=== PATIENT | female | born 1970 | race Caucasian/White ===

== ENCOUNTER 2019-02-05 08:51 | Inpatient (IN) | payer BC ==
[~2019-02-05] VITALS: Ht 160 cm; Wt 132.0 kg
[~2019-02-05 08:51] MED LIST: MULT473L
[2019-02-05 17:30] VITALS: BP 138/74
[2019-02-05] MEDS ORDERED: MORPHINE SULFATE 30MG TABLET SR PO SCH (18:15)
[2019-02-05] MEDS ORDERED: MORPHINE SULFATE 2 MG/ML CPJ (NOT FOR IM USE) IV PRN (18:30)
[2019-02-05] MEDS ORDERED: VANCOMYCIN 1500MG in DEXTROSE 5% WATER 250ML IV NR (19:00)
[2019-02-05] MEDS: FUROSEMIDE 20MG TABLET PO SCH (19:01)
[2019-02-05 19:52] LABS: BASOPHILS % 1.3 % (0.0-2.0); EOSINOPHILS % 1.7 % (0.0-5.0); LYMPHOCYTES % 26.2 % (20.0-50.0); MEAN CORPUSCULAR HEMOGLOBIN 32.3 pg (28.0-32.0); MEAN CORPUSCULAR VOLUME 94.4 fL (81.0-99.0); MEAN PLATELET VOLUME 9.1 fl (7.4-10.4); MONOCYTES % 6.3 % (2.0-8.0); NEUTROPHILS % 64.5 % (40.0-76.0); PLATELET 177 x1000/uL (130-400); RED BLOOD CELL COUNT 4.34 mill/uL (4.2-5.4); RED CELL DISTRIBUTION WIDTH 14.6 % (11.6-14.6)
[2019-02-05 19:59] LABS: CHLORIDE 101 mEq/L (98-107)
[2019-02-05 20:00] VITALS: BP 147/75
[2019-02-05] MEDS: MORPHINE SULFATE 4 MG/ML CPJ (NOT FOR IM USE) IV PRN (20:34)
[2019-02-05] MEDS: CLONIDINE 0.2MG TABLET PO SCH (20:34)
[2019-02-05] MEDS ORDERED: CLON0.1T14 PO (23:03)
[2019-02-05] MEDS ORDERED: MORP30TA66 PO (23:03)
[2019-02-05] MEDS ORDERED: ENOXAPARIN 40MG/0.4ML SYR SUBCUT SCH (23:15)
[2019-02-05] MEDS ORDERED: LORAZEPAM 2MG/ML CPJ IV PRN (23:15)
[2019-02-05] MEDS ORDERED: ONDANSETRON HCL 4MG/2ML INJ IV PRN (23:15)
[2019-02-05] MEDS ORDERED: CLONIDINE 0.1MG TABLET PO PRN (23:15)
[2019-02-05] MEDS ORDERED: HYDROCODONE/ACETAMINOPHEN 5/325MG TABLET PO PRN (23:15)
[2019-02-06] VITALS: BP 116/60
[2019-02-06] MEDS: MORPHINE SULFATE 4 MG/ML CPJ (NOT FOR IM USE) IV PRN ×4 (01:44→21:21)
[2019-02-06 04:00] VITALS: BP 119/50
[2019-02-06] MEDS: VANCOMYCIN 750 MG PREMIX 150 ML IV SCH ×3 (04:09→21:20)
[2019-02-06] MEDS: PANTOPRAZOLE 40MG DR TABLET PO SCH (06:37)
[2019-02-06 07:43] LABS: BASOPHILS % 0.9 % (0.0-2.0); EOSINOPHILS % 1.8 % (0.0-5.0); HEMATOCRIT. 40.4 % (36.0-48.0); HEMOGLOBIN. 13.7 g/dL (12.0-16.0); LYMPHOCYTES % 21.2 % (20.0-50.0); MEAN CORPUSCULAR HEMOGLOBIN 32.1 pg (28.0-32.0); MEAN CORPUSCULAR VOLUME 94.4 fL (81.0-99.0); MEAN PLATELET VOLUME 9.4 fl (7.4-10.4); NEUTROPHILS % 69.1 % (40.0-76.0); PLATELET 164 x1000/uL (130-400); RED BLOOD CELL COUNT 4.28 mill/uL (4.2-5.4); RED CELL DISTRIBUTION WIDTH 14.7 % (11.6-14.6)
[2019-02-06 07:59] LABS: CHLORIDE 99 mEq/L (98-107)
[2019-02-06 08:00] VITALS: BP 131/67
[2019-02-06] MEDS: FUROSEMIDE 20MG TABLET PO SCH (08:26)
[2019-02-06] MEDS: CLONIDINE 0.2MG TABLET PO SCH ×2 (08:26→21:20)
[2019-02-06] MEDS: ENOXAPARIN 40MG/0.4ML SYR SUBCUT SCH ×2 (08:26→21:22)
[2019-02-06] MEDS: MULTIVITAMINS,THER W-MINERALS TABLET PO SCH (08:27)
[2019-02-06 12:00] VITALS: BP 125/39
[2019-02-06 16:00] VITALS: BP 105/36
[2019-02-06 20:00] VITALS: BP 141/69
[2019-02-07] VITALS: BP 151/67
[2019-02-07] MEDS: VANCOMYCIN 750 MG PREMIX 150 ML IV SCH (03:38)
[2019-02-07 03:58] LABS: BASOPHILS % 1.1 % (0.0-2.0); EOSINOPHILS % 1.7 % (0.0-5.0); HEMATOCRIT. 39.3 % (36.0-48.0); HEMOGLOBIN. 13.4 g/dL (12.0-16.0); LYMPHOCYTES % 28.2 % (20.0-50.0); MEAN CORPUSCULAR HEMOGLOBIN 32.2 pg (28.0-32.0); MEAN CORPUSCULAR VOLUME 94.5 fL (81.0-99.0); MEAN PLATELET VOLUME 9.3 fl (7.4-10.4); MONOCYTES % 6.7 % (2.0-8.0); NEUTROPHILS % 62.3 % (40.0-76.0); PLATELET 139 x1000/uL (130-400); RED BLOOD CELL COUNT 4.16 mill/uL (4.2-5.4); RED CELL DISTRIBUTION WIDTH 14.7 % (11.6-14.6)
[2019-02-07 04:00] VITALS: BP 131/53
[2019-02-07 04:02] LABS: CHLORIDE 100 mEq/L (98-107)
[2019-02-07 04:10] LABS: VANCOMYCIN TROUGH 14.3 ug/mL (5.0-10.0)
[2019-02-07] MEDS: PANTOPRAZOLE 40MG DR TABLET PO SCH (06:09)
[2019-02-07 08:00] VITALS: BP 155/93
[2019-02-07] MEDS: ENOXAPARIN 40MG/0.4ML SYR SUBCUT SCH ×2 (09:00→20:18)
[2019-02-07] MEDS: ACETAMINOPHEN 325MG TABLET PO PRN (09:11)
[2019-02-07] MEDS: MORPHINE SULFATE 4 MG/ML CPJ (NOT FOR IM USE) IV PRN ×3 (09:11→23:10)
[2019-02-07] MEDS: CLONIDINE 0.2MG TABLET PO SCH ×2 (09:13→20:18)
[2019-02-07] MEDS: FUROSEMIDE 20MG TABLET PO SCH (09:13)
[2019-02-07] MEDS: MULTIVITAMINS,THER W-MINERALS TABLET PO SCH (09:14)
[2019-02-07] MEDS: VANCOMYCIN 1500MG in DEXTROSE 5% WATER 250ML IV SCH ×2 (11:57→22:23)
[2019-02-07 12:00] VITALS: BP 140/55
[2019-02-07 20:00] VITALS: BP 121/53
[2019-02-07 23:10] VITALS: BP 128/59
[2019-02-08 04:00] VITALS: BP 120/60
[2019-02-08] MEDS: ACETAMINOPHEN 325MG TABLET PO PRN (04:52)
[2019-02-08 08:00] VITALS: BP 150/71
[2019-02-08] MEDS: FUROSEMIDE 20MG TABLET PO SCH (08:29)
[2019-02-08] MEDS: MULTIVITAMINS,THER W-MINERALS TABLET PO SCH (08:30)
[2019-02-08] MEDS: FAMOTIDINE 20MG TABLET PO SCH ×2 (08:30→21:20)
[2019-02-08] MEDS: CLONIDINE 0.2MG TABLET PO SCH ×2 (08:30→21:20)
[2019-02-08] MEDS: ENOXAPARIN 40MG/0.4ML SYR SUBCUT SCH ×2 (08:31→21:00)
[2019-02-08] MEDS: VANCOMYCIN 1500MG in DEXTROSE 5% WATER 250ML IV SCH ×2 (08:31→21:20)
[2019-02-08 12:00] VITALS: BP 122/65
[2019-02-08 16:00] VITALS: BP 113/57
[2019-02-08] MEDS ORDERED: MULT-1146 MT (16:31)
[2019-02-08] MEDS: MORPHINE SULFATE 4 MG/ML CPJ (NOT FOR IM USE) IV PRN (17:15)
[2019-02-08 20:00] VITALS: BP 117/61
[2019-02-09 00:01] VITALS: BP 112/50
[2019-02-09 04:00] VITALS: BP 118/59
[2019-02-09 07:18] LABS: CHLORIDE 101 mEq/L (98-107)
[2019-02-09 07:25] LABS: PHOSPHORUS 4.1 mg/dL (2.5-4.9)
[2019-02-09 07:28] LABS: BASOPHILS % 0.9 % (0.0-2.0); HEMATOCRIT. 38.9 % (36.0-48.0); HEMOGLOBIN. 13.4 g/dL (12.0-16.0); MEAN CORPUSCULAR HEMOGLOBIN 32.6 pg (28.0-32.0); MEAN CORPUSCULAR VOLUME 94.8 fL (81.0-99.0); MONOCYTES % 7.8 % (2.0-8.0); NEUTROPHILS % 70.3 % (40.0-76.0); PLATELET 149 x1000/uL (130-400); RED BLOOD CELL COUNT 4.11 mill/uL (4.2-5.4); RED CELL DISTRIBUTION WIDTH 14.7 % (11.6-14.6)
[2019-02-09 08:00] VITALS: BP 140/46
[2019-02-09] MEDS: ENOXAPARIN 40MG/0.4ML SYR SUBCUT SCH (09:00)
[2019-02-09] MEDS: FUROSEMIDE 20MG TABLET PO SCH (09:37)
[2019-02-09] MEDS: CLONIDINE 0.2MG TABLET PO SCH (09:37)
[2019-02-09] MEDS: VANCOMYCIN 1500MG in DEXTROSE 5% WATER 250ML IV SCH (09:37)
[2019-02-09] MEDS: FAMOTIDINE 20MG TABLET PO SCH (09:37)
[2019-02-09] MEDS: MULTIVITAMINS,THER W-MINERALS TABLET PO SCH (09:37)
[2019-02-09] MEDS: MORPHINE SULFATE 4 MG/ML CPJ (NOT FOR IM USE) IV PRN (09:38)
[2019-02-09 12:00] VITALS: BP 127/54
[2019-02-09 16:00] VITALS: BP 150/62
[2019-02-09 18:06] VITALS: BP 150/62
[2019-02-09] MEDS ORDERED: POTASSIUM CHLORIDE 20MEQ TABLET SR PO NR (18:15)
== END 2019-02-09 18:55 | disposition home or self-care (01) | DRG 603 ==
LOC: 8WST 16:19
PROVIDERS: ADMIT Internal Medicine Nephrology; ATTEND Internal Medicine Nephrology
PROC: 02HV33Z Insertion of Infusion Device into Superior Vena Cava, Percutaneous Approach (ICD-10-PCS; principal; 2019-02-06)
PROC: B548ZZA Ultrasonography of Superior Vena Cava, Guidance (ICD-10-PCS; 2019-02-06)
DX: L03.116 Cellulitis of left lower limb (principal); Z68.43 Body mass index [BMI] 50.0-59.9, adult; M19.90 Unspecified osteoarthritis, unspecified site; E66.9 Obesity, unspecified; F17.200 Nicotine dependence, unspecified, uncomplicated; R74.0 Nonspecific elevation of levels of transaminase and lactic acid dehydrogenase [LDH]; D69.6 Thrombocytopenia, unspecified; G89.29 Other chronic pain; M54.9 Dorsalgia, unspecified; M25.469 Effusion, unspecified knee; Z88.2 Allergy status to sulfonamides; Z98.84 Bariatric surgery status; Z79.899 Other long term (current) drug therapy; Z88.0 Allergy status to penicillin; W18.39XA Other fall on same level, initial encounter; Y93.89 Activity, other specified; Y92.89 Other specified places as the place of occurrence of the external cause; Y99.8 Other external cause status
CPT/HCPCS: 36415; 36573; 71045; 73721; 80048; 80202; 83735; 84100; 93970; 97161; C1725; J1650; J2270; J3370; J7040; J7060

== ENCOUNTER 2019-06-11 16:34 | Emergency (ER) | payer BC ==
[~2019-06-11] VITALS: Ht 165.1 cm; Wt 119.0 kg
[~2019-06-11 16:34] MED LIST changes: +CLON0.1T14 PO; +MORP30TA66 PO; +MULT-1146 MT; -MULT473L
[2019-06-11] MEDS ORDERED: DILTIAZEM HCL 5MG/ML 5ML VIAL IV ONE (17:30)
[2019-06-11] MEDS ORDERED: DILTIAZEM HCL 60MG TABLET PO ONE (17:30)
[2019-06-11 17:46] LABS: PROTHROMBIN TIME 10.5 sec (9.6-11.0)
[2019-06-11 17:50] LABS: BASOPHILS % 0.9 % (0.0-2.0); CHLORIDE 99 mEq/L (98-107); EOSINOPHILS % 0.6 % (0.0-5.0); HEMATOCRIT. 41.1 % (36.0-48.0); HEMOGLOBIN. 14.1 g/dL (12.0-16.0); LYMPHOCYTES % 11.4 % (20.0-50.0); MEAN CORPUSCULAR HEMOGLOBIN 33.1 pg (28.0-32.0); MEAN CORPUSCULAR VOLUME 96.7 fL (81.0-99.0); MEAN PLATELET VOLUME 8.9 fl (7.4-10.4); MONOCYTES % 5.5 % (2.0-8.0); NEUTROPHILS % 81.6 % (40.0-76.0); PLATELET 177 x1000/uL (130-400); RED BLOOD CELL COUNT 4.25 mill/uL (4.2-5.4); RED CELL DISTRIBUTION WIDTH 14.3 % (11.6-14.6)
[2019-06-11 19:43] VITALS: BP 135/67
== END 2019-06-11 19:55 | disposition home or self-care (01) ==
LOC: ER 16:34 → CANBEDREQ 20:12
DX: I48.0 Paroxysmal atrial fibrillation (principal); I10 Essential (primary) hypertension; Z88.2 Allergy status to sulfonamides; Z88.0 Allergy status to penicillin; Z79.899 Other long term (current) drug therapy
CPT/HCPCS: 36415; 71045; 80053; 83880; 84484; 85025; 85610; 93005; 96374; 99284; J3490

== ENCOUNTER → 2019-11-30 | Outpatient (CLI) | payer BC ==
[~2019-11-30] MED LIST changes: +ALBU18HF2 IH; +ALPR0.25 MT; -CLON0.1T14 PO; +DILT120C88 MT; +FLUT1DIS3 INH; +FURO40TA5 PO; +HYDR-4009 MT; -MORP30TA66 PO; +NICO-645 TP; +POTA20TA82 PO; +RIVA20TA PO
[2019-11-30 16:29] LABS: CHLORIDE 97 mEq/L (98-107)
[2019-11-30 16:31] LABS: BASOPHILS % 1.2 % (0.0-2.0); EOSINOPHILS % 0.8 % (0.0-5.0); HEMOGLOBIN. 13.2 g/dL (12.0-16.0); LYMPHOCYTES % 11.9 % (20.0-50.0); MEAN CORPUSCULAR HEMOGLOBIN 35.4 pg (28.0-32.0); MEAN CORPUSCULAR VOLUME 101.9 fL (81.0-99.0); MEAN PLATELET VOLUME 9.4 fl (7.4-10.4); MONOCYTES % 4.6 % (2.0-8.0); NEUTROPHILS % 81.5 % (40.0-76.0); PLATELET 233 x1000/uL (130-400); RED BLOOD CELL COUNT 3.73 mill/uL (4.2-5.4); RED CELL DISTRIBUTION WIDTH 17.5 % (11.6-14.6)
== END | disposition home or self-care (01) ==
LOC: LAB 15:56
PROVIDERS: ATTEND Internal Medicine Nephrology
DX: L03.116 Cellulitis of left lower limb (principal)
CPT/HCPCS: 36415; 80048; 80076; 85025

== ENCOUNTER 2019-12-01 21:31 | Inpatient (IN) | payer BC ==
[~2019-12-01] VITALS: Ht 160 cm; Wt 81.2 kg
[2019-12-01] MEDS ORDERED: CLONIDINE 0.1MG TABLET PO PRN (22:30)
[2019-12-01] MEDS ORDERED: LORAZEPAM 2MG/ML CPJ IV PRN (22:30)
[2019-12-01] MEDS ORDERED: ONDANSETRON HCL 4MG/2ML INJ IV PRN (22:30)
[2019-12-01] MEDS ORDERED: ACETAMINOPHEN 325MG TABLET PO PRN (22:30)
[2019-12-01] MEDS ORDERED: IPRATROPIUM/ALBUTEROL 0.5-3(2.5)MG/3ML NEB NEB PRN (22:30)
[2019-12-01] MEDS ORDERED: HYDROMORPHONE HCL/PF 4MG/ML CPJ IV PRN (23:30)
[2019-12-01 23:41] LABS: CHLORIDE 98 mEq/L (98-107)
[2019-12-01 23:51] LABS: BASOPHILS % 0.9 % (0.0-2.0); EOSINOPHILS % 1.2 % (0.0-5.0); HEMATOCRIT. 36.7 % (36.0-48.0); HEMOGLOBIN. 12.9 g/dL (12.0-16.0); LYMPHOCYTES % 8.9 % (20.0-50.0); MEAN CORPUSCULAR HEMOGLOBIN 35.4 pg (28.0-32.0); MEAN CORPUSCULAR VOLUME 100.6 fL (81.0-99.0); MEAN PLATELET VOLUME 9.4 fl (7.4-10.4); PLATELET 227 x1000/uL (130-400); RED BLOOD CELL COUNT 3.65 mill/uL (4.2-5.4); RED CELL DISTRIBUTION WIDTH 17.1 % (11.6-14.6)
[2019-12-02] MEDS ORDERED: POTASSIUM CHLORIDE 20MEQ TABLET SR PO ONE (00:15)
[2019-12-02 00:17] LABS: INR 1.4; PROTHROMBIN TIME 14.7 sec (9.6-11.0)
[2019-12-02 03:16] VITALS: BP 110/58
[2019-12-02 08:00] VITALS: BP 108/59
[2019-12-02] MEDS ORDERED: ASPIRIN 81MG EC TABLET PO SCH (09:00)
[2019-12-02] MEDS ORDERED: ENOXAPARIN 40MG/0.4ML SYR SUBCUT SCH (09:00)
[2019-12-02] MEDS: HYDROCODONE/ACETAMINOPHEN 10/325MG TABLET PO PRN (10:39)
[2019-12-02 12:00] VITALS: BP 88/42
[2019-12-02] MEDS: LEVOFLOXACIN 500MG PREMIX 100 ML IV SCH (13:00)
[2019-12-02] MEDS ORDERED: DIAZEPAM 5 MG/ML 2ML CPJ IV NR (13:30)
[2019-12-02] MEDS: DILTIAZEM HCL 30MG TABLET PO SCH ×2 (14:00→21:45)
[2019-12-02] MEDS: BUDESONIDE 0.5MG/2ML NEB HHN SCH ×2 (14:00→21:22)
[2019-12-02] MEDS ORDERED: IPRATROPIUM/ALBUTEROL 0.5-3(2.5)MG/3ML NEB HHN PRN (14:00)
[2019-12-02] MEDS: METRONIDAZOLE 500 MG PREMIX 100 ML IV SCH ×2 (14:00→21:44)
[2019-12-02 15:49] LABS: CHLORIDE 99 mEq/L (98-107)
[2019-12-02 15:56] LABS: BASOPHILS % 0.8 % (0.0-2.0); EOSINOPHILS % 1.3 % (0.0-5.0); HEMATOCRIT. 33.7 % (36.0-48.0); HEMOGLOBIN. 11.9 g/dL (12.0-16.0); LYMPHOCYTES % 19.8 % (20.0-50.0); MEAN CORPUSCULAR HEMOGLOBIN 35.9 pg (28.0-32.0); MEAN CORPUSCULAR VOLUME 101.4 fL (81.0-99.0); MEAN PLATELET VOLUME 9.6 fl (7.4-10.4); MONOCYTES % 7.6 % (2.0-8.0); NEUTROPHILS % 70.5 % (40.0-76.0); PLATELET 199 x1000/uL (130-400); RED BLOOD CELL COUNT 3.32 mill/uL (4.2-5.4); RED CELL DISTRIBUTION WIDTH 17.3 % (11.6-14.6)
[2019-12-02 16:00] VITALS: BP 97/40
[2019-12-02 16:02] LABS: PHOSPHORUS 2.1 mg/dL (2.5-4.9)
[2019-12-02 16:21] LABS: HEPATITIS B SURFACE ANTIGEN NEGATIVE
[2019-12-02 16:51] LABS: HEPATITIS A AB IGM NEGATIVE (NEGATIVE)
[2019-12-02] MEDS ORDERED: IOHEXOL-300 100 ML BOTTLE ONE (18:25)
[2019-12-02 20:00] VITALS: BP 109/61
[2019-12-02] MEDS: HYDROMORPHONE HCL/PF 2MG/ML CPJ IV PRN (22:33)
[2019-12-02] MEDS: NICOTINE 21MG PATCH TD SCH (22:34)
[2019-12-02] MEDS: POTASSIUM CHLORIDE 20MEQ TABLET SR PO SCH (22:45)
[2019-12-03] VITALS: BP 97/51
[2019-12-03] MEDS: ALPRAZOLAM 0.5 MG TABLET PO PRN ×2 (00:41→22:48)
[2019-12-03 04:00] VITALS: BP 94/43
[2019-12-03] MEDS: DILTIAZEM HCL 30MG TABLET PO SCH ×3 (05:10→22:00)
[2019-12-03] MEDS: HYDROMORPHONE HCL/PF 2MG/ML CPJ IV PRN ×2 (05:59→14:13)
[2019-12-03] MEDS: METRONIDAZOLE 500 MG PREMIX 100 ML IV SCH ×3 (06:03→22:37)
[2019-12-03 08:00] VITALS: BP 102/84
[2019-12-03 08:17] LABS: CHLORIDE 98 mEq/L (98-107)
[2019-12-03 08:25] LABS: HEMATOCRIT. 33.3 % (36.0-48.0); HEMOGLOBIN. 11.7 g/dL (12.0-16.0); MEAN CORPUSCULAR HEMOGLOBIN 35.5 pg (28.0-32.0); MEAN CORPUSCULAR VOLUME 101.3 fL (81.0-99.0); MEAN PLATELET VOLUME 9.6 fl (7.4-10.4); PLATELET 218 x1000/uL (130-400); RED BLOOD CELL COUNT 3.29 mill/uL (4.2-5.4); RED CELL DISTRIBUTION WIDTH 17.2 % (11.6-14.6)
[2019-12-03 09:06] LABS: PLATELET ESTIMATE NORMAL
[2019-12-03] MEDS: POTASSIUM CHLORIDE 20MEQ TABLET SR PO SCH (09:21)
[2019-12-03] MEDS: FUROSEMIDE 40MG TABLET PO SCH (09:21)
[2019-12-03] MEDS: PANTOPRAZOLE SODIUM 40 MG/VIAL IV SCH (09:21)
[2019-12-03] MEDS: NICOTINE 21MG PATCH TD SCH (09:22)
[2019-12-03] MEDS: BUDESONIDE 0.5MG/2ML NEB HHN SCH ×2 (09:40→20:24)
[2019-12-03 12:00] VITALS: BP 98/54
[2019-12-03] MEDS: LEVOFLOXACIN 500MG PREMIX 100 ML IV SCH (14:14)
[2019-12-03 16:00] VITALS: BP 108/65
[2019-12-03 19:32] VITALS: BP 95/51
[2019-12-03] MEDS: HYDROCODONE/ACETAMINOPHEN 10/325MG TABLET PO PRN (19:52)
[2019-12-04] VITALS: BP 86/33
[2019-12-04] MEDS ORDERED: HYDROMORPHONE HCL/PF 2MG/ML CPJ IV NR
[2019-12-04 04:00] VITALS: BP 84/32
[2019-12-04 04:49] VITALS: BP 90/44
[2019-12-04] MEDS: HYDROCODONE/ACETAMINOPHEN 10/325MG TABLET PO PRN (04:53)
[2019-12-04] MEDS: DILTIAZEM HCL 30MG TABLET PO SCH (06:00)
[2019-12-04] MEDS ORDERED: METRONIDAZOLE 500MG TABLET PO SCH (06:00)
[2019-12-04 07:32] LABS: CHLORIDE 99 mEq/L (98-107)
[2019-12-04 07:48] LABS: HEMATOCRIT. 31.6 % (36.0-48.0); HEMOGLOBIN. 11.3 g/dL (12.0-16.0); MEAN PLATELET VOLUME 9.4 fl (7.4-10.4); PLATELET 210 x1000/uL (130-400); RED BLOOD CELL COUNT 3.13 mill/uL (4.2-5.4); RED CELL DISTRIBUTION WIDTH 17.2 % (11.6-14.6)
[2019-12-04] MEDS: BUDESONIDE 0.5MG/2ML NEB HHN SCH (09:25)
[2019-12-04] MEDS: HYDROMORPHONE HCL/PF 2MG/ML CPJ IV PRN (09:34)
[2019-12-04] MEDS: FUROSEMIDE 40MG TABLET PO SCH (10:14)
[2019-12-04] MEDS: POTASSIUM CHLORIDE 20MEQ TABLET SR PO SCH (10:14)
[2019-12-04] MEDS: NICOTINE 21MG PATCH TD SCH (10:14)
[2019-12-04] MEDS: PANTOPRAZOLE SODIUM 40 MG/VIAL IV SCH (10:14)
[2019-12-04] MEDS ORDERED: LEVOFLOXACIN 500MG TABLET PO SCH (11:00)
[2019-12-04] MEDS ORDERED: FURO40TA5 PO (12:58)
[2019-12-04] MEDS ORDERED: POTA20TA82 MT (12:58)
[2019-12-04] MEDS ORDERED: CLON0.5T MT (12:58)
[2019-12-04 14:58] VITALS: BP 112/41
[2019-12-04 19:19] LABS: PLATELET ESTIMATE NORMAL
== END 2019-12-04 15:45 | disposition home or self-care (01) | DRG 441 ==
LOC: ER 21:48 → 5WST 12-02 00:25 → EDBEDREQ 12-02 00:39 → ENRESERV 12-02 02:32
PROVIDERS: ADMIT Internal Medicine Nephrology; ATTEND Internal Medicine Nephrology
DX: B17.9 Acute viral hepatitis, unspecified (principal); E43 Unspecified severe protein-calorie malnutrition; J96.00 Acute respiratory failure, unspecified whether with hypoxia or hypercapnia; D68.4 Acquired coagulation factor deficiency; E87.1 Hypo-osmolality and hyponatremia; K80.60 Calculus of gallbladder and bile duct with cholecystitis, unspecified, without obstruction; E66.9 Obesity, unspecified; E78.5 Hyperlipidemia, unspecified; E87.6 Hypokalemia; F10.21 Alcohol dependence, in remission; F17.210 Nicotine dependence, cigarettes, uncomplicated; F40.240 Claustrophobia; G89.4 Chronic pain syndrome; I50.9 Heart failure, unspecified; I11.0 Hypertensive heart disease with heart failure; I27.20 Pulmonary hypertension, unspecified; I48.0 Paroxysmal atrial fibrillation; I87.8 Other specified disorders of veins; J44.9 Chronic obstructive pulmonary disease, unspecified; K76.0 Fatty (change of) liver, not elsewhere classified; K83.8 Other specified diseases of biliary tract; Z79.01 Long term (current) use of anticoagulants; Z79.51 Long term (current) use of inhaled steroids; Z79.899 Other long term (current) drug therapy; Z98.84 Bariatric surgery status; Z68.31 Body mass index [BMI] 31.0-31.9, adult; Z88.2 Allergy status to sulfonamides; Z91.041 Radiographic dye allergy status; Z91.013 Allergy to seafood; Z88.8 Allergy status to other drugs, medicaments and biological substances; Z88.1 Allergy status to other antibiotic agents; Z79.1 Long term (current) use of non-steroidal anti-inflammatories (NSAID); Z71.6 Tobacco abuse counseling; Z71.3 Dietary counseling and surveillance
CPT/HCPCS: 36415; 74177; 76700; 78227; 80048; 80053; 80076; 82105; 82248; 82378; 82962; 83735; 84100; 85025; 86301; 86705; 86709; 86803; 87340; 93005; 97162; 99285; A9537; C9113; J1170; J1650; J1956; J2060; J3490; J7626; Q9967

== ENCOUNTER → 2020-04-17 | Outpatient (CLI) | payer BC ==
[~2020-04-17] MED LIST changes: +CLON0.5T MT; +CLON0.5T23 MT; +METO2.5T14 MT; -NICO-645 TP; +POTA20TA82 MT; -POTA20TA82 PO; -RIVA20TA PO
[2020-04-17 08:48] LABS: CHLORIDE 86 mEq/L (98-107)
[2020-04-17 08:57] LABS: BASOPHILS % 0.9 % (0.0-2.0); EOSINOPHILS % 1.1 % (0.0-5.0); HEMOGLOBIN. 9.9 g/dL (12.0-16.0); LYMPHOCYTES % 14.7 % (20.0-50.0); MEAN CORPUSCULAR HEMOGLOBIN 36.4 pg (28.0-32.0); MEAN CORPUSCULAR VOLUME 103.4 fL (81.0-99.0); MONOCYTES % 7.6 % (2.0-8.0); NEUTROPHILS % 75.7 % (40.0-76.0); RED BLOOD CELL COUNT 2.71 mill/uL (4.2-5.4); RED CELL DISTRIBUTION WIDTH 14.9 % (11.6-14.6)
[2020-04-17 09:18] LABS: PLATELET 146 x1000/uL (130-400); PLATELET ESTIMATE NORMAL
[2020-04-17 09:19] LABS: MEAN PLATELET VOLUME 8.6 fl (7.4-10.4)
[2020-04-17 09:33] LABS: CLARITY URINE CLOUDY (CLEAR); COLOR URINE DARK YELLOW (YELLOW); KETONES URINE NEGATIVE (NEGATIVE); LEUKOCYTE ESTERASE URINE TRACE (NEGATIVE); NITRITE URINE POSITIVE (NEGATIVE); OCCULT BLOOD URINE TRACE (NEGATIVE); PROTEIN URINE 2+ (NEGATIVE); SPECIFIC GRAVITY URINE 1.013 (1.005-1.030)
== END | disposition home or self-care (01) ==
LOC: LAB 08:19
PROVIDERS: ATTEND Internal Medicine Nephrology
DX: I50.9 Heart failure, unspecified (principal)
CPT/HCPCS: 36415; 80048; 80076; 81003; 82140; 85025

== ENCOUNTER 2020-09-19 01:15 | Inpatient (IN) | payer BC ==
[2020-09-19] VITALS (66 sets, daily range): BP systolic 85–120; BP diastolic 33–76
[~2020-09-19] VITALS: Ht 160 cm; Wt 163.3 kg
[~2020-09-19 01:15] MED LIST changes: +LEVO500T2 MT; -METO2.5T14 MT; +METO2.5T2 MT; +ONDA4TAB5 MT; +SERT25TA74 MT
[2020-09-19 05:52] LABS: HEMATOCRIT. 24.1 % (36.0-48.0); HEMOGLOBIN. 8.2 g/dL (12.0-16.0); MEAN CORPUSCULAR HEMOGLOBIN 35.8 pg (28.0-32.0); MEAN CORPUSCULAR VOLUME 105.8 fL (81.0-99.0); MEAN PLATELET VOLUME 8.7 fl (7.4-10.4); PLATELET 80 x1000/uL (130-400); RED BLOOD CELL COUNT 2.28 mill/uL (4.2-5.4); RED CELL DISTRIBUTION WIDTH 21.3 % (11.6-14.6)
[2020-09-19 05:56] LABS: INR 1.3; PROTHROMBIN TIME 13.4 sec (9.6-11.0)
[2020-09-19] MEDS ORDERED: PANTOPRAZOLE 80 MG in SODIUM CHLORIDE 0.9% 100 ML IV SCH (07:00)
[2020-09-19] MEDS: OCTREOTIDE 1,000 MCG in SODIUM CHLORIDE 0.9% 98 ML IV SCH (07:02)
[2020-09-19] MEDS ORDERED: PHYTONADIONE 10 MG/10 ML ORALSYR PO SCH (09:00)
[2020-09-19 09:42] LABS: BG BASE EXCESS -1.8 mmol/L (-2.0-2.0); BG DEOXYHEMOGLOBIN 4.2 % (0.0-5.0); BG FRACTION INSPIRED OXYGEN 28; BG HCO3 ACT 25.6 mmol/L (22.0-26.0); BG METHEMOGLOBIN 0.1 % (0.0-1.5); BG OXYGEN SATURATION 95.7 % (92.0-98.5); BG OXYHEMOGLOBIN 93.7 % (94.0-97.0); BG PCO2 58.1 mmHg (35.0-45.0); BG PH 7.262 (7.350-7.450); BG PO2 88.7 mmHg (75.0-100.0); BG SAMPLE SITE LEFT RADIAL; BG TOTAL HEMOGLOBIN 8.9 g/dL (12.0-18.0); BG VENT MODE NASAL CANNULA
[2020-09-19] MEDS: MIDODRINE HCL 2.5MG TABLET PO SCH ×3 (09:48→19:06)
[2020-09-19] MEDS: LACTULOSE 20G/30ML UDC PO SCH ×4 (09:48→21:10)
[2020-09-19] MEDS: HYDROMORPHONE HCL/PF 2MG/ML CPJ IV PRN (09:49)
[2020-09-19] MEDS ORDERED: ONDANSETRON HCL 4MG/2ML INJ IV PRN (10:45)
[2020-09-19] MEDS ORDERED: ALBUMIN HUMAN 25GM/100ML (25%) IV NR (11:15)
[2020-09-19 12:07] LABS: PLATELET ESTIMATE DECREASED
[2020-09-19 12:49] LABS: CHLORIDE 98 mEq/L (98-107)
[2020-09-19] MEDS ORDERED: IPRATROPIUM/ALBUTEROL 0.5-3(2.5)MG/3ML NEB HHN PRN (13:30)
[2020-09-19] MEDS: NICOTINE 21MG PATCH TD SCH (15:53)
[2020-09-19] MEDS ORDERED: MORP100T6 MT (16:34)
[2020-09-19] MEDS ORDERED: MOME13HF INH (16:35)
[2020-09-19] MEDS ORDERED: *PATIENT'S OWN MEDICATION STORAGE XX SCH (17:00)
[2020-09-19] MEDS: PANTOPRAZOLE SODIUM 40 MG/VIAL IV SCH (19:06)
[2020-09-19] MEDS: CLONAZEPAM 0.5MG TABLET PO SCH (21:00)
[2020-09-19] MEDS: CEFTRIAXONE 1,000 MG in DEXTROSE 5% WATER 50 ML IV SCH (21:10)
[2020-09-20] VITALS (47 sets, daily range): BP systolic 84–125; BP diastolic 34–69
[2020-09-20] MEDS: OCTREOTIDE 1,000 MCG in SODIUM CHLORIDE 0.9% 98 ML IV SCH ×2 (01:08→22:15)
[2020-09-20] MEDS: IPRATROPIUM/ALBUTEROL 0.5-3(2.5)MG/3ML NEB HHN SCH ×4 (01:41→21:02)
[2020-09-20 05:41] LABS: CHLORIDE 100 mEq/L (98-107)
[2020-09-20 05:49] LABS: PHOSPHORUS 4.7 mg/dL (2.5-4.9); TOTAL IRON BINDING CAPACITY 80 ug/dL (250-450)
[2020-09-20 05:54] LABS: HEMATOCRIT. 24.4 % (36.0-48.0); HEMOGLOBIN. 8.4 g/dL (12.0-16.0); MEAN CORPUSCULAR HEMOGLOBIN 35.5 pg (28.0-32.0); MEAN CORPUSCULAR VOLUME 103.2 fL (81.0-99.0); MEAN PLATELET VOLUME 8.3 fl (7.4-10.4); PLATELET 76 x1000/uL (130-400); RED BLOOD CELL COUNT 2.36 mill/uL (4.2-5.4); RED CELL DISTRIBUTION WIDTH 20.8 % (11.6-14.6)
[2020-09-20 06:11] LABS: FOLIC ACID (FOLATE) SERUM 4.2 ng/mL (>5.38)
[2020-09-20] MEDS: LACTULOSE 20G/30ML UDC PO SCH ×4 (08:06→19:59)
[2020-09-20] MEDS: PANTOPRAZOLE SODIUM 40 MG/VIAL IV SCH ×2 (08:07→17:37)
[2020-09-20] MEDS: NICOTINE 21MG PATCH TD SCH (08:07)
[2020-09-20] MEDS: MIDODRINE HCL 2.5MG TABLET PO SCH ×2 (08:07→13:34)
[2020-09-20] MEDS: HYDROMORPHONE HCL/PF 2MG/ML CPJ IV PRN ×6 (08:07→21:49)
[2020-09-20] MEDS: FOLIC ACID 1MG TABLET PO SCH (09:42)
[2020-09-20] MEDS: NOREPINEPHRINE 32 MG in DEXT 5% WATER 218 ML IV PRN (09:42)
[2020-09-20] MEDS ORDERED: HEPARIN SODIUM 1,000 UNIT/1ML VIAL IV NR (10:00)
[2020-09-20] MEDS: PHENYLEPHRINE 50 MG in DEXT 5% WATER 245 ML IV PRN (12:00)
[2020-09-20] MEDS: THIAMINE HCL 100MG TABLET PO SCH (13:34)
[2020-09-20] MEDS ORDERED: MIDODRINE HCL 2.5MG TABLET PO NR (13:45)
[2020-09-20 15:15] LABS: PLATELET ESTIMATE DECREASED
[2020-09-20] MEDS: MIDODRINE HCL 5MG TABLET PO SCH (17:37)
[2020-09-20] MEDS: CLONAZEPAM 0.5MG TABLET PO SCH (19:59)
[2020-09-20] MEDS: CEFTRIAXONE 1,000 MG in DEXTROSE 5% WATER 50 ML IV SCH (19:59)
[2020-09-20] MEDS: RIFAXIMIN 550 MG TABLET PO SCH (19:59)
[2020-09-20] MEDS: EPOETIN ALFA-EPBX 10,000 UNIT/ML VIAL SUBCUT SCH (21:49)
[2020-09-21] VITALS (70 sets, daily range): BP systolic 89–116; BP diastolic 35–63
[2020-09-21] MEDS: HYDROMORPHONE HCL/PF 2MG/ML CPJ IV PRN ×8 (00:04→20:17)
[2020-09-21] MEDS: IPRATROPIUM/ALBUTEROL 0.5-3(2.5)MG/3ML NEB HHN SCH ×4 (02:16→22:02)
[2020-09-21 04:39] LABS: BASOPHILS % 0.2 % (0.0-2.0); EOSINOPHILS % 1.9 % (0.0-5.0); HEMATOCRIT. 25.4 % (36.0-48.0); HEMOGLOBIN. 8.5 g/dL (12.0-16.0); LYMPHOCYTES % 17.5 % (20.0-50.0); MEAN CORPUSCULAR VOLUME 98.4 fL (81.0-99.0); MEAN PLATELET VOLUME 8.3 fl (7.4-10.4); MONOCYTES % 6.7 % (2.0-8.0); NEUTROPHILS % 73.7 % (40.0-76.0); PLATELET 85 x1000/uL (130-400); RED BLOOD CELL COUNT 2.59 mill/uL (4.2-5.4); RED CELL DISTRIBUTION WIDTH 21.2 % (11.6-14.6)
[2020-09-21] MEDS: PHENYLEPHRINE 50 MG in DEXT 5% WATER 245 ML IV PRN ×2 (06:00→20:28)
[2020-09-21] MEDS: MIDODRINE HCL 5MG TABLET PO SCH ×3 (08:17→18:05)
[2020-09-21] MEDS: FOLIC ACID 1MG TABLET PO SCH (08:17)
[2020-09-21] MEDS: RIFAXIMIN 550 MG TABLET PO SCH ×2 (08:17→20:17)
[2020-09-21] MEDS: PANTOPRAZOLE SODIUM 40 MG/VIAL IV SCH ×2 (08:17→18:05)
[2020-09-21] MEDS: LACTULOSE 20G/30ML UDC PO SCH ×4 (08:17→20:17)
[2020-09-21] MEDS: THIAMINE HCL 100MG TABLET PO SCH (08:17)
[2020-09-21] MEDS: NICOTINE 21MG PATCH TD SCH (09:51)
[2020-09-21] MEDS: CEFTRIAXONE 1,000 MG in DEXTROSE 5% WATER 50 ML IV SCH (20:17)
[2020-09-21] MEDS: OCTREOTIDE 1,000 MCG in SODIUM CHLORIDE 0.9% 98 ML IV SCH (20:17)
[2020-09-21] MEDS: CLONAZEPAM 0.5MG TABLET PO SCH (20:18)
[2020-09-22] VITALS (46 sets, daily range): BP systolic 85–111; BP diastolic 30–65
[2020-09-22] MEDS: HYDROMORPHONE HCL/PF 2MG/ML CPJ IV PRN ×8 (00:16→20:46)
[2020-09-22] MEDS: IPRATROPIUM/ALBUTEROL 0.5-3(2.5)MG/3ML NEB HHN SCH ×4 (03:31→20:10)
[2020-09-22 05:34] LABS: HEMATOCRIT. 25.7 % (36.0-48.0); HEMOGLOBIN. 8.5 g/dL (12.0-16.0); MEAN CORPUSCULAR HEMOGLOBIN 32.6 pg (28.0-32.0); MEAN CORPUSCULAR VOLUME 98.6 fL (81.0-99.0); MEAN PLATELET VOLUME 7.8 fl (7.4-10.4); PLATELET 80 x1000/uL (130-400); RED BLOOD CELL COUNT 2.61 mill/uL (4.2-5.4); RED CELL DISTRIBUTION WIDTH 20.8 % (11.6-14.6)
[2020-09-22 07:22] LABS: PLATELET ESTIMATE DECREASED
[2020-09-22] MEDS: FOLIC ACID 1MG TABLET PO SCH (09:05)
[2020-09-22] MEDS: LACTULOSE 20G/30ML UDC PO SCH ×4 (09:05→21:29)
[2020-09-22] MEDS: THIAMINE HCL 100MG TABLET PO SCH (09:06)
[2020-09-22] MEDS: PANTOPRAZOLE SODIUM 40 MG/VIAL IV SCH ×2 (09:06→18:21)
[2020-09-22] MEDS: MIDODRINE HCL 5MG TABLET PO SCH ×3 (09:06→18:21)
[2020-09-22] MEDS: NICOTINE 21MG PATCH TD SCH (09:07)
[2020-09-22] MEDS: RIFAXIMIN 550 MG TABLET PO SCH ×2 (09:07→21:29)
[2020-09-22] MEDS: PHENYLEPHRINE 50 MG in DEXT 5% WATER 245 ML IV PRN (10:13)
[2020-09-22] MEDS ORDERED: NALOXONE HCL 0.4 MG/ML 1ML VIAL IV PRN (11:00)
[2020-09-22] MEDS: OCTREOTIDE 1,000 MCG in SODIUM CHLORIDE 0.9% 98 ML IV SCH (15:45)
[2020-09-22] MEDS ORDERED: PHENOL/SODIUM PHENOLATE 1.4% SRPAY 177ML MM PRN (17:00)
[2020-09-22] MEDS: CEFTRIAXONE 1,000 MG in DEXTROSE 5% WATER 50 ML IV SCH (21:29)
[2020-09-22] MEDS: CLONAZEPAM 0.5MG TABLET PO SCH (21:29)
[2020-09-22] MEDS: EPOETIN ALFA-EPBX 10,000 UNIT/ML VIAL SUBCUT SCH (21:31)
[2020-09-23] VITALS (49 sets, daily range): BP systolic 86–132; BP diastolic 31–81
[2020-09-23] MEDS: IPRATROPIUM/ALBUTEROL 0.5-3(2.5)MG/3ML NEB HHN SCH ×4 (02:35→20:40)
[2020-09-23] MEDS: HYDROMORPHONE HCL/PF 2MG/ML CPJ IV PRN ×6 (04:55→19:58)
[2020-09-23 05:46] LABS: HEMATOCRIT. 25.6 % (36.0-48.0); HEMOGLOBIN. 8.6 g/dL (12.0-16.0); MEAN CORPUSCULAR HEMOGLOBIN 33.2 pg (28.0-32.0); MEAN CORPUSCULAR VOLUME 99.3 fL (81.0-99.0); PLATELET 81 x1000/uL (130-400); RED BLOOD CELL COUNT 2.58 mill/uL (4.2-5.4); RED CELL DISTRIBUTION WIDTH 20.6 % (11.6-14.6)
[2020-09-23] MEDS: PANTOPRAZOLE SODIUM 40 MG/VIAL IV SCH ×2 (09:07→16:41)
[2020-09-23] MEDS: FOLIC ACID 1MG TABLET PO SCH (09:07)
[2020-09-23] MEDS: RIFAXIMIN 550 MG TABLET PO SCH ×2 (09:07→21:42)
[2020-09-23] MEDS: LACTULOSE 20G/30ML UDC PO SCH ×4 (09:07→21:42)
[2020-09-23] MEDS: THIAMINE HCL 100MG TABLET PO SCH (09:08)
[2020-09-23] MEDS: MIDODRINE HCL 5MG TABLET PO SCH ×3 (09:08→16:43)
[2020-09-23] MEDS: NICOTINE 21MG PATCH TD SCH (09:18)
[2020-09-23] MEDS: PHENYLEPHRINE 50 MG in DEXT 5% WATER 245 ML IV PRN ×3 (11:02→19:22)
[2020-09-23 13:00] LABS: PLATELET ESTIMATE DECREASED
[2020-09-23] MEDS: CLONAZEPAM 0.5MG TABLET PO SCH (21:42)
[2020-09-24] VITALS (84 sets, daily range): BP systolic 80–134; BP diastolic 25–101
[2020-09-24] MEDS: HYDROMORPHONE HCL/PF 2MG/ML CPJ IV PRN ×7 (01:08→16:51)
[2020-09-24] MEDS: IPRATROPIUM/ALBUTEROL 0.5-3(2.5)MG/3ML NEB HHN SCH ×2 (02:03→09:45)
[2020-09-24] MEDS: PHENYLEPHRINE 50 MG in DEXT 5% WATER 245 ML IV PRN ×2 (04:52→09:25)
[2020-09-24 07:18] LABS: HEMATOCRIT. 28.2 % (36.0-48.0); HEMOGLOBIN. 9.5 g/dL (12.0-16.0); MEAN CORPUSCULAR HEMOGLOBIN 33.5 pg (28.0-32.0); MEAN CORPUSCULAR VOLUME 99.1 fL (81.0-99.0); MEAN PLATELET VOLUME 8.6 fl (7.4-10.4); PLATELET 105 x1000/uL (130-400); RED BLOOD CELL COUNT 2.85 mill/uL (4.2-5.4); RED CELL DISTRIBUTION WIDTH 20.5 % (11.6-14.6)
[2020-09-24] MEDS: PANTOPRAZOLE SODIUM 40 MG/VIAL IV SCH ×2 (09:43→16:51)
[2020-09-24] MEDS: FOLIC ACID 1MG TABLET PO SCH (09:43)
[2020-09-24] MEDS: LACTULOSE 20G/30ML UDC PO SCH ×4 (09:43→20:01)
[2020-09-24] MEDS: NICOTINE 21MG PATCH TD SCH (09:44)
[2020-09-24] MEDS: RIFAXIMIN 550 MG TABLET PO SCH ×2 (09:44→20:01)
[2020-09-24] MEDS: THIAMINE HCL 100MG TABLET PO SCH (09:44)
[2020-09-24] MEDS: MIDODRINE HCL 5MG TABLET PO SCH ×3 (09:44→16:52)
[2020-09-24 10:36] LABS: PLATELET ESTIMATE DECREASED
[2020-09-24] MEDS ORDERED: POTASSIUM CHLORIDE 20MEQ TABLET SR PO SCH (12:00)
[2020-09-24] MEDS ORDERED: PHENYLEPHRINE 100 MG in DEXT 5% WATER 240 ML IV PRN (12:00)
[2020-09-24] MEDS: CLONAZEPAM 0.5MG TABLET PO SCH (20:01)
[2020-09-25] VITALS (96 sets, daily range): BP systolic 78–135; BP diastolic 40–82
[2020-09-25] MEDS: IPRATROPIUM/ALBUTEROL 0.5-3(2.5)MG/3ML NEB HHN SCH ×4 (00:23→21:02)
[2020-09-25] MEDS ORDERED: PHENYLEPHRINE 100 MG in DEXT 5% WATER 240 ML IV PRN (01:15)
[2020-09-25] MEDS: PHENYLEPHRINE 100 MG in DEXT 5% WATER 250 ML IV PRN ×3 (01:37→21:19)
[2020-09-25] MEDS: HYDROMORPHONE HCL/PF 2MG/ML CPJ IV PRN ×7 (03:03→23:59)
[2020-09-25 05:53] LABS: HEMOGLOBIN. 9.4 g/dL (12.0-16.0); MEAN CORPUSCULAR HEMOGLOBIN 34.4 pg (28.0-32.0); MEAN CORPUSCULAR VOLUME 102.6 fL (81.0-99.0); MEAN PLATELET VOLUME 8.7 fl (7.4-10.4); PLATELET 79 x1000/uL (130-400); RED BLOOD CELL COUNT 2.73 mill/uL (4.2-5.4); RED CELL DISTRIBUTION WIDTH 20.5 % (11.6-14.6)
[2020-09-25] MEDS: LACTULOSE 20G/30ML UDC PO SCH ×4 (09:07→20:50)
[2020-09-25] MEDS: PANTOPRAZOLE SODIUM 40 MG/VIAL IV SCH ×2 (09:07→17:52)
[2020-09-25] MEDS: RIFAXIMIN 550 MG TABLET PO SCH ×2 (09:08→20:50)
[2020-09-25] MEDS: THIAMINE HCL 100MG TABLET PO SCH (09:08)
[2020-09-25] MEDS: FOLIC ACID 1MG TABLET PO SCH (09:09)
[2020-09-25] MEDS: MIDODRINE HCL 5MG TABLET PO SCH ×3 (09:09→17:54)
[2020-09-25] MEDS: NICOTINE 21MG PATCH TD SCH (09:09)
[2020-09-25 11:04] LABS: PLATELET ESTIMATE DECREASED
[2020-09-25] MEDS ORDERED: VANCOMYCIN 2,000 MG in DEXT 5% WATER 500 ML IV SCH (13:00)
[2020-09-25] MEDS: FLUDROCORTISONE ACETATE 0.1MG TABLET PO SCH (13:32)
[2020-09-25] MEDS: EPOETIN ALFA-EPBX 10,000 UNIT/ML VIAL SUBCUT SCH (21:00)
[2020-09-25] MEDS ORDERED: EPOETIN ALFA-EPBX 10,000 UNIT/ML VIAL SUBCUT SCH (23:00)
[2020-09-26] VITALS (96 sets, daily range): BP systolic 66–153; BP diastolic 18–107
[2020-09-26] MEDS: IPRATROPIUM/ALBUTEROL 0.5-3(2.5)MG/3ML NEB HHN SCH ×2 (00:40→09:08)
[2020-09-26] MEDS: PHENYLEPHRINE 100 MG in DEXT 5% WATER 250 ML IV PRN ×3 (04:14→20:58)
[2020-09-26 05:09] LABS: BASOPHILS % 0.8 % (0.0-2.0); HEMATOCRIT. 25.9 % (36.0-48.0); HEMOGLOBIN. 8.6 g/dL (12.0-16.0); LYMPHOCYTES % 10.1 % (20.0-50.0); MEAN CORPUSCULAR HEMOGLOBIN 33.4 pg (28.0-32.0); MEAN CORPUSCULAR VOLUME 101.1 fL (81.0-99.0); MEAN PLATELET VOLUME 8.9 fl (7.4-10.4); MONOCYTES % 10.1 % (2.0-8.0); PLATELET 75 x1000/uL (130-400); RED BLOOD CELL COUNT 2.57 mill/uL (4.2-5.4)
[2020-09-26] MEDS: HYDROMORPHONE HCL/PF 2MG/ML CPJ IV PRN ×2 (05:47→08:20)
[2020-09-26] MEDS: LACTULOSE 20G/30ML UDC PO SCH ×4 (08:45→20:48)
[2020-09-26] MEDS: MIDODRINE HCL 5MG TABLET PO SCH ×3 (08:46→17:00)
[2020-09-26] MEDS: FOLIC ACID 1MG TABLET PO SCH (08:46)
[2020-09-26] MEDS: NICOTINE 21MG PATCH TD SCH (08:46)
[2020-09-26] MEDS: FLUDROCORTISONE ACETATE 0.1MG TABLET PO SCH (08:46)
[2020-09-26] MEDS: THIAMINE HCL 100MG TABLET PO SCH (08:46)
[2020-09-26] MEDS: PANTOPRAZOLE SODIUM 40 MG/VIAL IV SCH ×2 (08:46→16:59)
[2020-09-26] MEDS ORDERED: CLONAZEPAM 0.5MG TABLET PO SCH (09:00)
[2020-09-26] MEDS ORDERED: LORAZEPAM 2MG/ML CPJ IV NR (09:15)
[2020-09-26] MEDS ORDERED: NALOXONE HCL 0.4 MG/ML 1ML VIAL IV NR (09:30)
[2020-09-26] MEDS ORDERED: DILTIAZEM HCL 5MG/ML 5ML VIAL IV ONE (09:38)
[2020-09-26] MEDS: FENTANYL CITRATE/PF 2,500 MCG in SODIUM CHLORIDE 0.9% 200 ML IV PRN (10:25)
[2020-09-26] MEDS: PROPOFOL 10MG/ML 100ML 100 ML IV PRN ×3 (10:36→15:55)
[2020-09-26] MEDS ORDERED: ALBUMIN HUMAN 25GM/100ML (25%) IV NR (10:45)
[2020-09-26 10:50] LABS: BG BASE EXCESS 0.6 mmol/L (-2.0-2.0); BG CARBOXYHEMOGLOBIN 0.8 % (0.5-1.5); BG DEOXYHEMOGLOBIN 0.3 % (0.0-5.0); BG FRACTION INSPIRED OXYGEN 100; BG HCO3 ACT 27.1 mmol/L (22.0-26.0); BG METHEMOGLOBIN 0.3 % (0.0-1.5); BG OXYGEN SATURATION 99.7 % (92.0-98.5); BG OXYHEMOGLOBIN 98.6 % (94.0-97.0); BG PCO2 53.9 mmHg (35.0-45.0); BG PH 7.319 (7.350-7.450); BG PO2 283.1 mmHg (75.0-100.0); BG SAMPLE SITE RIGHT RADIAL; BG TOTAL HEMOGLOBIN 8.9 g/dL (12.0-18.0); BG VENT MODE VENT - AC
[2020-09-26] MEDS ORDERED: POTASSIUM CHLORIDE 20MEQ/PACKET NG NR (13:15)
[2020-09-26] MEDS: CEFEPIME 1,000 MG in DEXTROSE 5% WATER 50 ML IV SCH (14:39)
[2020-09-26 16:03] LABS: BASOPHILS % 1.5 % (0.0-2.0); EOSINOPHILS % 1.2 % (0.0-5.0); HEMOGLOBIN. 8.6 g/dL (12.0-16.0); LYMPHOCYTES % 10.7 % (20.0-50.0); MEAN CORPUSCULAR HEMOGLOBIN 32.9 pg (28.0-32.0); MEAN CORPUSCULAR VOLUME 99.5 fL (81.0-99.0); MEAN PLATELET VOLUME 9.1 fl (7.4-10.4); MONOCYTES % 6.7 % (2.0-8.0); NEUTROPHILS % 79.9 % (40.0-76.0); PLATELET 67 x1000/uL (130-400); RED BLOOD CELL COUNT 2.61 mill/uL (4.2-5.4); RED CELL DISTRIBUTION WIDTH 20.2 % (11.6-14.6)
[2020-09-26 16:21] LABS: D-DIMER 28.22 mg/L FEU (<0.50); INR 1.3; PARTIAL THROMBOPLASTIN TIME 35.9 sec (23.4-31.0)
[2020-09-26 16:27] LABS: T4 FREE 0.85 ng/dL (0.76-1.46)
[2020-09-26] MEDS ORDERED: VANCOMYCIN 1 G PREMIX 200 ML IV NR (18:00)
[2020-09-26] MEDS: IPRATROPIUM BROMIDE (0.02%) 0.5MG/2.5ML NEB HHN SCH (20:15)
[2020-09-27] VITALS (100 sets, daily range): BP systolic 84–126; BP diastolic 42–75
[2020-09-27] MEDS: PROPOFOL 10MG/ML 100ML 100 ML IV PRN ×3 (00:27→16:28)
[2020-09-27] MEDS: IPRATROPIUM BROMIDE (0.02%) 0.5MG/2.5ML NEB HHN SCH ×4 (02:10→20:05)
[2020-09-27] MEDS: FENTANYL CITRATE/PF 2,500 MCG in SODIUM CHLORIDE 0.9% 200 ML IV PRN ×2 (02:15→15:33)
[2020-09-27] MEDS: CEFEPIME 1,000 MG in DEXTROSE 5% WATER 50 ML IV SCH ×2 (02:34→15:05)
[2020-09-27] MEDS: PHENYLEPHRINE 100 MG in DEXT 5% WATER 250 ML IV PRN ×3 (05:26→20:26)
[2020-09-27 05:40] LABS: BASOPHILS % 2.3 % (0.0-2.0); EOSINOPHILS % 0.8 % (0.0-5.0); HEMATOCRIT. 23.6 % (36.0-48.0); HEMOGLOBIN. 8.5 g/dL (12.0-16.0); LYMPHOCYTES % 18.8 % (20.0-50.0); MEAN CORPUSCULAR HEMOGLOBIN 39.6 pg (28.0-32.0); MEAN CORPUSCULAR VOLUME 110.6 fL (81.0-99.0); MEAN PLATELET VOLUME 9.1 fl (7.4-10.4); MONOCYTES % 6.7 % (2.0-8.0); NEUTROPHILS % 71.4 % (40.0-76.0); PLATELET 79 x1000/uL (130-400); RED BLOOD CELL COUNT 2.14 mill/uL (4.2-5.4); RED CELL DISTRIBUTION WIDTH 19.5 % (11.6-14.6)
[2020-09-27 05:49] LABS: INR 1.3
[2020-09-27 06:53] LABS: PLATELET ESTIMATE DECREASED
[2020-09-27 07:34] LABS: HEPATITIS B SURFACE ANTIGEN NEGATIVE
[2020-09-27] MEDS: PANTOPRAZOLE SODIUM 40 MG/VIAL IV SCH ×2 (08:07→16:12)
[2020-09-27] MEDS: NICOTINE 21MG PATCH TD SCH (08:07)
[2020-09-27] MEDS: LACTULOSE 20G/30ML UDC PO SCH ×4 (08:26→20:26)
[2020-09-27] MEDS: FLUDROCORTISONE ACETATE 0.1MG TABLET PO SCH (08:27)
[2020-09-27] MEDS: THIAMINE HCL 100MG TABLET PO SCH (08:27)
[2020-09-27] MEDS: MIDODRINE HCL 5MG TABLET PO SCH ×3 (08:27→16:10)
[2020-09-27] MEDS: FOLIC ACID 1MG TABLET PO SCH (08:27)
[2020-09-27 09:21] LABS: BG BASE EXCESS 0.5 mmol/L (-2.0-2.0); BG CARBOXYHEMOGLOBIN 0.2 % (0.5-1.5); BG FRACTION INSPIRED OXYGEN 70; BG HCO3 ACT 24.9 mmol/L (22.0-26.0); BG METHEMOGLOBIN 0.3 % (0.0-1.5); BG OXYHEMOGLOBIN 98.5 % (94.0-97.0); BG PCO2 39.3 mmHg (35.0-45.0); BG PO2 154.8 mmHg (75.0-100.0); BG SAMPLE SITE LEFT RADIAL; BG TOTAL HEMOGLOBIN 9.1 g/dL (12.0-18.0); BG VENT MODE VENT - AC
[2020-09-27 12:37] LABS: HEPATITIS A AB IGM NEGATIVE (NEGATIVE)
[2020-09-28] VITALS (99 sets, daily range): BP systolic 46–126; BP diastolic 21–77
[2020-09-28] MEDS: PROPOFOL 10MG/ML 100ML 100 ML IV PRN (00:39)
[2020-09-28] MEDS: IPRATROPIUM BROMIDE (0.02%) 0.5MG/2.5ML NEB HHN SCH ×4 (02:10→21:01)
[2020-09-28] MEDS: CEFEPIME 1,000 MG in DEXTROSE 5% WATER 50 ML IV SCH ×2 (03:00→14:09)
[2020-09-28 05:03] LABS: BASOPHILS % 1.1 % (0.0-2.0); EOSINOPHILS % 1.8 % (0.0-5.0); HEMATOCRIT. 25.9 % (36.0-48.0); HEMOGLOBIN. 8.8 g/dL (12.0-16.0); LYMPHOCYTES % 11.1 % (20.0-50.0); MEAN CORPUSCULAR HEMOGLOBIN 34.6 pg (28.0-32.0); MEAN CORPUSCULAR VOLUME 101.3 fL (81.0-99.0); RED BLOOD CELL COUNT 2.56 mill/uL (4.2-5.4); RED CELL DISTRIBUTION WIDTH 20.2 % (11.6-14.6)
[2020-09-28] MEDS: PHENYLEPHRINE 100 MG in DEXT 5% WATER 250 ML IV PRN ×3 (05:10→20:41)
[2020-09-28] MEDS: FENTANYL CITRATE/PF 2,500 MCG in SODIUM CHLORIDE 0.9% 200 ML IV PRN (05:10)
[2020-09-28] MEDS: FLUDROCORTISONE ACETATE 0.1MG TABLET PO SCH (08:19)
[2020-09-28] MEDS: PANTOPRAZOLE SODIUM 40 MG/VIAL IV SCH ×2 (08:19→17:17)
[2020-09-28] MEDS: LACTULOSE 20G/30ML UDC PO SCH ×4 (08:19→21:30)
[2020-09-28] MEDS: THIAMINE HCL 100MG TABLET PO SCH (08:20)
[2020-09-28] MEDS: FOLIC ACID 1MG TABLET PO SCH (08:20)
[2020-09-28] MEDS: MIDODRINE HCL 5MG TABLET PO SCH ×3 (08:20→17:17)
[2020-09-28] MEDS: NICOTINE 21MG PATCH TD SCH (08:20)
[2020-09-28 09:16] LABS: BG BASE EXCESS -1.5 mmol/L (-2.0-2.0); BG CARBOXYHEMOGLOBIN 0.9 % (0.5-1.5); BG DEOXYHEMOGLOBIN 6.6 % (0.0-5.0); BG FRACTION INSPIRED OXYGEN 40; BG HCO3 ACT 23.1 mmol/L (22.0-26.0); BG METHEMOGLOBIN 0.2 % (0.0-1.5); BG OXYGEN SATURATION 93.3 % (92.0-98.5); BG OXYHEMOGLOBIN 92.3 % (94.0-97.0); BG PCO2 38.3 mmHg (35.0-45.0); BG PH 7.398 (7.350-7.450); BG PO2 66.2 mmHg (75.0-100.0); BG SAMPLE SITE RIGHT RADIAL; BG VENT MODE VENT - AC
[2020-09-28 10:41] LABS: MEAN PLATELET VOLUME 9.1 fl (7.4-10.4); PLATELET 84 x1000/uL (130-400)
[2020-09-28] MEDS ORDERED: KCL 20MEQ/100ML PREMIX 100 ML IV NR (18:00)
[2020-09-29] VITALS (97 sets, daily range): BP systolic 40–146; BP diastolic 22–117
[2020-09-29] MEDS: IPRATROPIUM BROMIDE (0.02%) 0.5MG/2.5ML NEB HHN SCH ×4 (02:05→20:46)
[2020-09-29] MEDS: CEFEPIME 1,000 MG in DEXTROSE 5% WATER 50 ML IV SCH ×2 (03:11→15:53)
[2020-09-29 05:04] LABS: BASOPHILS % 0.8 % (0.0-2.0); EOSINOPHILS % 0.9 % (0.0-5.0); HEMATOCRIT. 22.8 % (36.0-48.0); HEMOGLOBIN. 7.6 g/dL (12.0-16.0); LYMPHOCYTES % 10.4 % (20.0-50.0); MEAN CORPUSCULAR HEMOGLOBIN 35.4 pg (28.0-32.0); MEAN CORPUSCULAR VOLUME 106.2 fL (81.0-99.0); MEAN PLATELET VOLUME 8.8 fl (7.4-10.4); MONOCYTES % 5.5 % (2.0-8.0); NEUTROPHILS % 82.4 % (40.0-76.0); PLATELET 73 x1000/uL (130-400); RED BLOOD CELL COUNT 2.15 mill/uL (4.2-5.4); RED CELL DISTRIBUTION WIDTH 20.5 % (11.6-14.6)
[2020-09-29 09:04] LABS: BG BASE EXCESS 2.2 mmol/L (-2.0-2.0); BG CARBOXYHEMOGLOBIN 0.5 % (0.5-1.5); BG DEOXYHEMOGLOBIN 2.7 % (0.0-5.0); BG HCO3 ACT 26.4 mmol/L (22.0-26.0); BG METHEMOGLOBIN 0.3 % (0.0-1.5); BG OXYGEN SATURATION 97.3 % (92.0-98.5); BG OXYHEMOGLOBIN 96.5 % (94.0-97.0); BG PH 7.448 (7.350-7.450); BG PO2 92.6 mmHg (75.0-100.0); BG SAMPLE SITE RIGHT RADIAL; BG TOTAL HEMOGLOBIN 7.7 g/dL (12.0-18.0); BG VENT MODE VENT - AC
[2020-09-29] MEDS: FOLIC ACID 1MG TABLET PO SCH (09:17)
[2020-09-29] MEDS: FLUDROCORTISONE ACETATE 0.1MG TABLET PO SCH (09:17)
[2020-09-29] MEDS: LACTULOSE 20G/30ML UDC PO SCH ×4 (09:17→21:00)
[2020-09-29] MEDS: PANTOPRAZOLE SODIUM 40 MG/VIAL IV SCH ×2 (09:17→17:00)
[2020-09-29] MEDS: MIDODRINE HCL 5MG TABLET PO SCH ×3 (09:18→18:01)
[2020-09-29] MEDS: THIAMINE HCL 100MG TABLET PO SCH (09:18)
[2020-09-29] MEDS: NICOTINE 21MG PATCH TD SCH (09:18)
[2020-09-29] MEDS: PHENYLEPHRINE 100 MG in DEXT 5% WATER 250 ML IV PRN (09:22)
[2020-09-29] MEDS: MORPHINE SULFATE 2 MG/ML CPJ (NOT FOR IM USE) IV PRN ×2 (09:28→13:29)
[2020-09-29] MEDS ORDERED: KCL 20MEQ/100ML PREMIX 100 ML IV NR (11:00)
[2020-09-29 11:33] LABS: BG BASE EXCESS 2.7 mmol/L (-2.0-2.0); BG DEOXYHEMOGLOBIN 5.3 % (0.0-5.0); BG FRACTION INSPIRED OXYGEN 40; BG HCO3 ACT 27.9 mmol/L (22.0-26.0); BG METHEMOGLOBIN 0.3 % (0.0-1.5); BG OXYGEN SATURATION 94.7 % (92.0-98.5); BG OXYHEMOGLOBIN 94.4 % (94.0-97.0); BG PCO2 45.9 mmHg (35.0-45.0); BG PH 7.401 (7.350-7.450); BG PO2 73.5 mmHg (75.0-100.0); BG SAMPLE SITE RIGHT RADIAL; BG TOTAL HEMOGLOBIN 8.1 g/dL (12.0-18.0); BG VENT MODE VENT - CPAP
[2020-09-29] MEDS ORDERED: VANCOMYCIN 1 G PREMIX 200 ML IV NR (12:00)
[2020-09-30] VITALS (104 sets, daily range): BP systolic 77–128; BP diastolic 23–74
[2020-09-30] MEDS: IPRATROPIUM BROMIDE (0.02%) 0.5MG/2.5ML NEB HHN SCH ×3 (01:59→21:19)
[2020-09-30] MEDS: PHENYLEPHRINE 100 MG in DEXT 5% WATER 250 ML IV PRN ×2 (03:08→08:24)
[2020-09-30] MEDS: CEFEPIME 1,000 MG in DEXTROSE 5% WATER 50 ML IV SCH ×2 (03:08→15:33)
[2020-09-30] MEDS: MORPHINE SULFATE 2 MG/ML CPJ (NOT FOR IM USE) IV PRN ×4 (03:15→22:09)
[2020-09-30 05:10] LABS: BASOPHILS % 0.8 % (0.0-2.0); EOSINOPHILS % 1.1 % (0.0-5.0); HEMATOCRIT. 21.6 % (36.0-48.0); HEMOGLOBIN. 7.4 g/dL (12.0-16.0); LYMPHOCYTES % 11.3 % (20.0-50.0); MEAN CORPUSCULAR HEMOGLOBIN 35.4 pg (28.0-32.0); MEAN CORPUSCULAR VOLUME 102.9 fL (81.0-99.0); MEAN PLATELET VOLUME 8.9 fl (7.4-10.4); MONOCYTES % 6.4 % (2.0-8.0); NEUTROPHILS % 80.4 % (40.0-76.0); PLATELET 83 x1000/uL (130-400); RED CELL DISTRIBUTION WIDTH 20.6 % (11.6-14.6)
[2020-09-30] MEDS: FLUDROCORTISONE ACETATE 0.1MG TABLET PO SCH (09:00)
[2020-09-30] MEDS: FOLIC ACID 1MG TABLET PO SCH ×2 (09:00→11:40)
[2020-09-30] MEDS: MIDODRINE HCL 5MG TABLET PO SCH ×3 (09:00→16:39)
[2020-09-30] MEDS: THIAMINE HCL 100MG TABLET PO SCH ×2 (09:00→11:40)
[2020-09-30] MEDS: LACTULOSE 20G/30ML UDC PO SCH ×4 (09:00→22:08)
[2020-09-30] MEDS: PANTOPRAZOLE SODIUM 40 MG/VIAL IV SCH ×2 (10:00→16:39)
[2020-09-30] MEDS: NICOTINE 21MG PATCH TD SCH (10:00)
[2020-09-30] MEDS: ALPRAZOLAM 0.25 MG TABLET PO SCH (20:17)
[2020-10-01] VITALS (85 sets, daily range): BP systolic 53–154; BP diastolic 20–129
[2020-10-01] MEDS: IPRATROPIUM BROMIDE (0.02%) 0.5MG/2.5ML NEB HHN SCH ×4 (01:47→20:20)
[2020-10-01] MEDS: CEFEPIME 1,000 MG in DEXTROSE 5% WATER 50 ML IV SCH ×2 (03:21→15:48)
[2020-10-01] MEDS: MORPHINE SULFATE 2 MG/ML CPJ (NOT FOR IM USE) IV PRN ×3 (03:22→11:56)
[2020-10-01 04:59] LABS: BASOPHILS % 0.8 % (0.0-2.0); EOSINOPHILS % 1.5 % (0.0-5.0); HEMATOCRIT. 22.4 % (36.0-48.0); HEMOGLOBIN. 7.3 g/dL (12.0-16.0); LYMPHOCYTES % 12.6 % (20.0-50.0); MEAN CORPUSCULAR HEMOGLOBIN 34.1 pg (28.0-32.0); MEAN CORPUSCULAR VOLUME 104.4 fL (81.0-99.0); MEAN PLATELET VOLUME 8.9 fl (7.4-10.4); MONOCYTES % 8.1 % (2.0-8.0); PLATELET 94 x1000/uL (130-400); RED BLOOD CELL COUNT 2.15 mill/uL (4.2-5.4); RED CELL DISTRIBUTION WIDTH 20.4 % (11.6-14.6)
[2020-10-01] MEDS: LACTULOSE 20G/30ML UDC PO SCH ×4 (09:47→21:30)
[2020-10-01] MEDS: NICOTINE 21MG PATCH TD SCH (09:47)
[2020-10-01] MEDS: PANTOPRAZOLE SODIUM 40 MG/VIAL IV SCH ×2 (09:47→17:00)
[2020-10-01] MEDS: THIAMINE HCL 100MG TABLET PO SCH (09:48)
[2020-10-01] MEDS: FLUDROCORTISONE ACETATE 0.1MG TABLET PO SCH (09:48)
[2020-10-01] MEDS: FOLIC ACID 1MG TABLET PO SCH (09:48)
[2020-10-01] MEDS: MIDODRINE HCL 5MG TABLET PO SCH ×3 (10:01→17:00)
[2020-10-01] MEDS: PHENYLEPHRINE 100 MG in DEXT 5% WATER 250 ML IV PRN (12:00)
[2020-10-01] MEDS: ALPRAZOLAM 0.25 MG TABLET PO SCH (21:30)
[2020-10-02] VITALS (86 sets, daily range): BP systolic 72–137; BP diastolic 27–102
[2020-10-02] MEDS: MORPHINE SULFATE 2 MG/ML CPJ (NOT FOR IM USE) IV PRN ×4 (00:29→20:14)
[2020-10-02] MEDS: IPRATROPIUM BROMIDE (0.02%) 0.5MG/2.5ML NEB HHN SCH ×4 (01:32→20:08)
[2020-10-02] MEDS: PHENYLEPHRINE 100 MG in DEXT 5% WATER 250 ML IV PRN ×2 (05:09→18:04)
[2020-10-02 05:49] LABS: BASOPHILS % 1.4 % (0.0-2.0); EOSINOPHILS % 1.6 % (0.0-5.0); HEMATOCRIT. 24.7 % (36.0-48.0); HEMOGLOBIN. 8.2 g/dL (12.0-16.0); LYMPHOCYTES % 20.6 % (20.0-50.0); MEAN CORPUSCULAR HEMOGLOBIN 33.5 pg (28.0-32.0); MEAN CORPUSCULAR VOLUME 100.4 fL (81.0-99.0); MEAN PLATELET VOLUME 8.1 fl (7.4-10.4); MONOCYTES % 8.6 % (2.0-8.0); NEUTROPHILS % 67.8 % (40.0-76.0); PLATELET 104 x1000/uL (130-400); RED BLOOD CELL COUNT 2.45 mill/uL (4.2-5.4); RED CELL DISTRIBUTION WIDTH 19.2 % (11.6-14.6)
[2020-10-02 06:08] LABS: PHOSPHORUS 3.3 mg/dL (2.5-4.9)
[2020-10-02] MEDS: MIDODRINE HCL 5MG TABLET PO SCH ×3 (09:00→17:59)
[2020-10-02] MEDS: FLUDROCORTISONE ACETATE 0.1MG TABLET PO SCH (09:00)
[2020-10-02] MEDS: LACTULOSE 20G/30ML UDC PO SCH ×4 (09:00→20:13)
[2020-10-02] MEDS: NICOTINE 21MG PATCH TD SCH (10:09)
[2020-10-02] MEDS: PANTOPRAZOLE SODIUM 40 MG/VIAL IV SCH ×2 (10:09→17:59)
[2020-10-02 12:15] LABS: INR 1.3; PARTIAL THROMBOPLASTIN TIME 33.6 sec (23.4-31.0)
[2020-10-02] MEDS: APIXABAN 2.5 MG TABLET PO SCH (17:00)
[2020-10-02] MEDS: ALPRAZOLAM 0.25 MG TABLET PO SCH (20:13)
[2020-10-03] VITALS (79 sets, daily range): BP systolic 64–157; BP diastolic 37–94
[2020-10-03] MEDS: MORPHINE SULFATE 2 MG/ML CPJ (NOT FOR IM USE) IV PRN ×3 (00:23→11:14)
[2020-10-03] MEDS: IPRATROPIUM BROMIDE (0.02%) 0.5MG/2.5ML NEB HHN SCH ×3 (01:58→14:20)
[2020-10-03] MEDS ORDERED: LORAZEPAM 2MG/ML CPJ IV SCH (03:00)
[2020-10-03 06:08] LABS: BASOPHILS % 0.8 % (0.0-2.0); EOSINOPHILS % 1.5 % (0.0-5.0); HEMATOCRIT. 22.6 % (36.0-48.0); HEMOGLOBIN. 7.7 g/dL (12.0-16.0); LYMPHOCYTES % 17.1 % (20.0-50.0); MEAN PLATELET VOLUME 8.5 fl (7.4-10.4); MONOCYTES % 7.8 % (2.0-8.0); NEUTROPHILS % 72.8 % (40.0-76.0); PLATELET 101 x1000/uL (130-400); RED CELL DISTRIBUTION WIDTH 19.2 % (11.6-14.6)
[2020-10-03 06:21] LABS: PHOSPHORUS 2.9 mg/dL (2.5-4.9)
[2020-10-03] MEDS: PHENYLEPHRINE 100 MG in DEXT 5% WATER 250 ML IV PRN (06:34)
[2020-10-03] MEDS: LACTULOSE 20G/30ML UDC PO SCH ×4 (08:29→21:56)
[2020-10-03] MEDS: PANTOPRAZOLE SODIUM 40 MG/VIAL IV SCH ×2 (08:29→17:02)
[2020-10-03] MEDS: FLUDROCORTISONE ACETATE 0.1MG TABLET PO SCH (08:30)
[2020-10-03] MEDS: THIAMINE HCL 100MG TABLET PO SCH (08:30)
[2020-10-03] MEDS: NICOTINE 21MG PATCH TD SCH (08:30)
[2020-10-03] MEDS: MIDODRINE HCL 5MG TABLET PO SCH ×3 (08:30→17:01)
[2020-10-03] MEDS: APIXABAN 2.5 MG TABLET PO SCH ×2 (08:31→17:00)
[2020-10-03] MEDS: FOLIC ACID 1MG TABLET PO SCH (09:00)
[2020-10-03] MEDS ORDERED: POTASSIUM CHLORIDE 20MEQ/PACKET PO NR (11:15)
[2020-10-03] MEDS ORDERED: MORPHINE SULFATE 2 MG/ML CPJ (NOT FOR IM USE) IV SCH (11:15)
[2020-10-03] MEDS: HYDROMORPHONE HCL 2MG TABLET PO PRN ×2 (12:30→17:01)
[2020-10-03] MEDS: HYDROMORPHONE HCL/PF 2MG/ML CPJ IV PRN ×2 (17:02→21:55)
[2020-10-03] MEDS ORDERED: ZOLPIDEM TARTRATE 5MG TABLET PO PRN (21:00)
[2020-10-03] MEDS: ALPRAZOLAM 0.25 MG TABLET PO SCH (21:56)
[2020-10-03] MEDS ORDERED: AMIODARONE HCL 150 MG in DEXT 5% WATER 100 ML IV NR (22:45)
[2020-10-03] MEDS ORDERED: AMIODARONE HCL 900 MG in DEXT 5% WATER 482 ML IV PRN (22:45)
[2020-10-04] VITALS (69 sets, daily range): BP systolic 79–146; BP diastolic 32–96
[2020-10-04] MEDS: PHENYLEPHRINE 100 MG in DEXT 5% WATER 250 ML IV PRN ×4 (00:55→20:43)
[2020-10-04] MEDS: IPRATROPIUM BROMIDE (0.02%) 0.5MG/2.5ML NEB HHN SCH ×4 (02:04→20:22)
[2020-10-04 05:45] LABS: BASOPHILS % 0.8 % (0.0-2.0); EOSINOPHILS % 0.7 % (0.0-5.0); HEMATOCRIT. 24.5 % (36.0-48.0); HEMOGLOBIN. 8.2 g/dL (12.0-16.0); LYMPHOCYTES % 7.9 % (20.0-50.0); MEAN CORPUSCULAR HEMOGLOBIN 35.1 pg (28.0-32.0); MEAN CORPUSCULAR VOLUME 105.2 fL (81.0-99.0); MEAN PLATELET VOLUME 8.8 fl (7.4-10.4); MONOCYTES % 7.7 % (2.0-8.0); NEUTROPHILS % 82.9 % (40.0-76.0); PLATELET 129 x1000/uL (130-400); RED BLOOD CELL COUNT 2.33 mill/uL (4.2-5.4); RED CELL DISTRIBUTION WIDTH 20.2 % (11.6-14.6)
[2020-10-04 06:09] LABS: PHOSPHORUS 3.6 mg/dL (2.5-4.9)
[2020-10-04] MEDS: FOLIC ACID 1MG TABLET PO SCH (08:31)
[2020-10-04] MEDS: THIAMINE HCL 100MG TABLET PO SCH (08:31)
[2020-10-04] MEDS: LACTULOSE 20G/30ML UDC PO SCH ×4 (08:31→20:54)
[2020-10-04] MEDS: PANTOPRAZOLE SODIUM 40 MG/VIAL IV SCH ×2 (08:31→16:16)
[2020-10-04] MEDS: APIXABAN 2.5 MG TABLET PO SCH ×2 (08:31→18:39)
[2020-10-04] MEDS: FLUDROCORTISONE ACETATE 0.1MG TABLET PO SCH (08:32)
[2020-10-04] MEDS: NICOTINE 21MG PATCH TD SCH (08:32)
[2020-10-04] MEDS: MIDODRINE HCL 5MG TABLET PO SCH ×3 (08:32→16:17)
[2020-10-04] MEDS: HYDROMORPHONE HCL/PF 2MG/ML CPJ IV PRN ×2 (09:20→20:53)
[2020-10-04] MEDS: HYDROMORPHONE HCL 2MG TABLET PO PRN ×2 (12:15→16:17)
[2020-10-04] MEDS: ALPRAZOLAM 0.25 MG TABLET PO SCH (20:54)
[2020-10-04] MEDS ORDERED: TRAZODONE HCL 50MG TABLET PO SCH (21:00)
[2020-10-04] MEDS: NOREPINEPHRINE 32 MG in DEXT 5% WATER 218 ML IV PRN (22:48)
[2020-10-05] VITALS (96 sets, daily range): BP systolic 72–149; BP diastolic 34–90
[2020-10-05] MEDS: HYDROMORPHONE HCL/PF 2MG/ML CPJ IV PRN ×4 (00:29→17:55)
[2020-10-05] MEDS: IPRATROPIUM BROMIDE (0.02%) 0.5MG/2.5ML NEB HHN SCH ×5 (01:57→20:49)
[2020-10-05] MEDS: PHENYLEPHRINE 100 MG in DEXT 5% WATER 250 ML IV PRN ×4 (02:15→20:38)
[2020-10-05 05:15] LABS: BASOPHILS % 1.3 % (0.0-2.0); EOSINOPHILS % 1.4 % (0.0-5.0); HEMOGLOBIN. 7.8 g/dL (12.0-16.0); LYMPHOCYTES % 11.7 % (20.0-50.0); MEAN CORPUSCULAR HEMOGLOBIN 37.6 pg (28.0-32.0); MEAN CORPUSCULAR VOLUME 106.4 fL (81.0-99.0); MEAN PLATELET VOLUME 8.4 fl (7.4-10.4); MONOCYTES % 8.6 % (2.0-8.0); PLATELET 103 x1000/uL (130-400); RED BLOOD CELL COUNT 2.07 mill/uL (4.2-5.4); RED CELL DISTRIBUTION WIDTH 19.9 % (11.6-14.6)
[2020-10-05] MEDS: LACTULOSE 20G/30ML UDC PO SCH ×5 (08:03→21:00)
[2020-10-05] MEDS: FOLIC ACID 1MG TABLET PO SCH (08:03)
[2020-10-05] MEDS: PANTOPRAZOLE SODIUM 40 MG/VIAL IV SCH ×2 (08:03→17:54)
[2020-10-05] MEDS: NICOTINE 21MG PATCH TD SCH (08:03)
[2020-10-05] MEDS: FLUDROCORTISONE ACETATE 0.1MG TABLET PO SCH (08:03)
[2020-10-05] MEDS: MIDODRINE HCL 5MG TABLET PO SCH ×3 (08:03→17:55)
[2020-10-05] MEDS: THIAMINE HCL 100MG TABLET PO SCH (08:03)
[2020-10-05] MEDS ORDERED: DIGOXIN 500MCG/2ML AMP IV NR (10:00)
[2020-10-05] MEDS: HYDROMORPHONE HCL 2MG TABLET PO PRN (10:03)
[2020-10-05] MEDS: RIFAXIMIN 550 MG TABLET PO SCH ×2 (10:12→20:55)
[2020-10-05] MEDS: APIXABAN 2.5 MG TABLET PO SCH ×2 (11:17→17:54)
[2020-10-05] MEDS: QUETIAPINE FUMARATE 50MG TABLET PO SCH (20:55)
[2020-10-05] MEDS: ALPRAZOLAM 0.25 MG TABLET PO SCH (20:55)
[2020-10-06] VITALS (102 sets, daily range): BP systolic 70–162; BP diastolic 31–110
[2020-10-06] MEDS: IPRATROPIUM BROMIDE (0.02%) 0.5MG/2.5ML NEB HHN SCH ×5 (01:10→20:28)
[2020-10-06 04:56] LABS: BASOPHILS % 1.4 % (0.0-2.0); EOSINOPHILS % 0.9 % (0.0-5.0); LYMPHOCYTES % 16.7 % (20.0-50.0); MEAN CORPUSCULAR HEMOGLOBIN 32.3 pg (28.0-32.0); MEAN CORPUSCULAR VOLUME 96.9 fL (81.0-99.0); MEAN PLATELET VOLUME 8.4 fl (7.4-10.4); PLATELET 98 x1000/uL (130-400); RED BLOOD CELL COUNT 2.14 mill/uL (4.2-5.4)
[2020-10-06 05:01] LABS: HEMOGLOBIN. 6.9 g/dL (12.0-16.0)
[2020-10-06 05:02] LABS: HEMATOCRIT. 20.8 % (36.0-48.0)
[2020-10-06 05:16] LABS: PHOSPHORUS 3.1 mg/dL (2.5-4.9)
[2020-10-06] MEDS: LACTULOSE 20G/30ML UDC PO SCH ×4 (09:11→20:47)
[2020-10-06] MEDS: HYDROMORPHONE HCL/PF 2MG/ML CPJ IV PRN ×3 (09:11→23:51)
[2020-10-06] MEDS: MIDODRINE HCL 5MG TABLET PO SCH ×3 (09:11→18:03)
[2020-10-06] MEDS: RIFAXIMIN 550 MG TABLET PO SCH ×2 (09:11→20:47)
[2020-10-06] MEDS: THIAMINE HCL 100MG TABLET PO SCH (09:11)
[2020-10-06] MEDS: NICOTINE 21MG PATCH TD SCH (09:11)
[2020-10-06] MEDS: APIXABAN 2.5 MG TABLET PO SCH (09:11)
[2020-10-06] MEDS: FOLIC ACID 1MG TABLET PO SCH (09:12)
[2020-10-06] MEDS: FLUDROCORTISONE ACETATE 0.1MG TABLET PO SCH (09:12)
[2020-10-06] MEDS: PANTOPRAZOLE SODIUM 40 MG/VIAL IV SCH ×2 (09:13→18:03)
[2020-10-06] MEDS: PHENYLEPHRINE 100 MG in DEXT 5% WATER 250 ML IV PRN ×2 (10:49→18:03)
[2020-10-06] MEDS ORDERED: POTASSIUM CHLORIDE 20MEQ TABLET SR PO SCH (12:00)
[2020-10-06] MEDS: DILTIAZEM HCL 125 MG in DEXT 5% WATER 100 ML IV PRN (16:11)
[2020-10-06 20:46] LABS: HEMATOCRIT 23.4 % (36.0-48.0); HEMOGLOBIN 7.8 g/dL (12.0-16.0)
[2020-10-06] MEDS: QUETIAPINE FUMARATE 50MG TABLET PO SCH (20:47)
[2020-10-07] VITALS (93 sets, daily range): BP systolic 75–145; BP diastolic 40–100
[2020-10-07] MEDS: PHENYLEPHRINE 100 MG in DEXT 5% WATER 250 ML IV PRN ×5 (00:58→22:19)
[2020-10-07] MEDS: IPRATROPIUM BROMIDE (0.02%) 0.5MG/2.5ML NEB HHN SCH ×4 (04:02→21:19)
[2020-10-07] MEDS: HYDROMORPHONE HCL/PF 2MG/ML CPJ IV PRN ×5 (05:00→20:11)
[2020-10-07 05:41] LABS: BASOPHILS % 0.7 % (0.0-2.0); EOSINOPHILS % 1.5 % (0.0-5.0); HEMOGLOBIN. 7.6 g/dL (12.0-16.0); LYMPHOCYTES % 15.3 % (20.0-50.0); MEAN CORPUSCULAR HEMOGLOBIN 33.2 pg (28.0-32.0); MEAN CORPUSCULAR VOLUME 100.5 fL (81.0-99.0); MEAN PLATELET VOLUME 8.4 fl (7.4-10.4); MONOCYTES % 6.7 % (2.0-8.0); NEUTROPHILS % 75.8 % (40.0-76.0); PLATELET 96 x1000/uL (130-400); RED BLOOD CELL COUNT 2.28 mill/uL (4.2-5.4); RED CELL DISTRIBUTION WIDTH 19.8 % (11.6-14.6)
[2020-10-07 05:42] LABS: PHOSPHORUS 3.3 mg/dL (2.5-4.9)
[2020-10-07] MEDS: LACTULOSE 20G/30ML UDC PO SCH ×4 (08:06→20:00)
[2020-10-07] MEDS: PANTOPRAZOLE SODIUM 40 MG/VIAL IV SCH ×2 (08:06→16:20)
[2020-10-07] MEDS: MIDODRINE HCL 5MG TABLET PO SCH ×3 (08:07→16:20)
[2020-10-07] MEDS: NICOTINE 21MG PATCH TD SCH (08:07)
[2020-10-07] MEDS: FLUDROCORTISONE ACETATE 0.1MG TABLET PO SCH (08:07)
[2020-10-07] MEDS: FOLIC ACID 1MG TABLET PO SCH (08:07)
[2020-10-07] MEDS: RIFAXIMIN 550 MG TABLET PO SCH ×2 (08:07→20:00)
[2020-10-07] MEDS: THIAMINE HCL 100MG TABLET PO SCH (08:07)
[2020-10-07] MEDS: QUETIAPINE FUMARATE 50MG TABLET PO SCH (20:00)
[2020-10-08] VITALS (100 sets, daily range): BP systolic 87–157; BP diastolic 20–103
[2020-10-08] MEDS: HYDROMORPHONE HCL/PF 2MG/ML CPJ IV PRN ×5 (00:31→15:16)
[2020-10-08] MEDS: ACETAMINOPHEN 325MG TABLET PO PRN (00:38)
[2020-10-08] MEDS: IPRATROPIUM BROMIDE (0.02%) 0.5MG/2.5ML NEB HHN SCH ×3 (02:02→20:26)
[2020-10-08] MEDS: PHENYLEPHRINE 100 MG in DEXT 5% WATER 250 ML IV PRN ×5 (04:23→23:19)
[2020-10-08 05:47] LABS: BASOPHILS % 0.9 % (0.0-2.0); EOSINOPHILS % 1.2 % (0.0-5.0); HEMOGLOBIN. 7.2 g/dL (12.0-16.0); LYMPHOCYTES % 14.2 % (20.0-50.0); MEAN CORPUSCULAR HEMOGLOBIN 34.9 pg (28.0-32.0); MEAN CORPUSCULAR VOLUME 101.6 fL (81.0-99.0); MEAN PLATELET VOLUME 8.4 fl (7.4-10.4); MONOCYTES % 6.4 % (2.0-8.0); NEUTROPHILS % 77.3 % (40.0-76.0); PLATELET 89 x1000/uL (130-400); RED BLOOD CELL COUNT 2.07 mill/uL (4.2-5.4); RED CELL DISTRIBUTION WIDTH 18.8 % (11.6-14.6)
[2020-10-08] MEDS: IPRATROPIUM BROMIDE (0.02%) 0.5MG/2.5ML NEB HHN PRN ×2 (08:12→17:42)
[2020-10-08] MEDS: MIDODRINE HCL 5MG TABLET PO SCH ×3 (08:39→17:40)
[2020-10-08] MEDS: NICOTINE 21MG PATCH TD SCH (08:39)
[2020-10-08] MEDS: FLUDROCORTISONE ACETATE 0.1MG TABLET PO SCH (08:39)
[2020-10-08] MEDS: THIAMINE HCL 100MG TABLET PO SCH (08:39)
[2020-10-08] MEDS: FOLIC ACID 1MG TABLET PO SCH (08:39)
[2020-10-08] MEDS: LACTULOSE 20G/30ML UDC PO SCH ×4 (08:39→22:00)
[2020-10-08] MEDS: RIFAXIMIN 550 MG TABLET PO SCH ×2 (08:39→22:00)
[2020-10-08] MEDS: PANTOPRAZOLE SODIUM 40 MG/VIAL IV SCH ×2 (08:39→17:41)
[2020-10-08] MEDS ORDERED: KCL 20MEQ/100ML PREMIX 100 ML IV NR (12:00)
[2020-10-08] MEDS: QUETIAPINE FUMARATE 50MG TABLET PO SCH (22:00)
[2020-10-09] VITALS (97 sets, daily range): BP systolic 86–135; BP diastolic 36–99
[2020-10-09] MEDS: HYDROMORPHONE HCL/PF 2MG/ML CPJ IV PRN ×6 (02:12→19:44)
[2020-10-09] MEDS: IPRATROPIUM BROMIDE (0.02%) 0.5MG/2.5ML NEB HHN SCH ×4 (02:22→20:19)
[2020-10-09] MEDS: PHENYLEPHRINE 100 MG in DEXT 5% WATER 250 ML IV PRN ×2 (05:25→18:30)
[2020-10-09] MEDS: DILTIAZEM HCL 125 MG in DEXT 5% WATER 100 ML IV PRN (05:26)
[2020-10-09] MEDS: IPRATROPIUM BROMIDE (0.02%) 0.5MG/2.5ML NEB HHN PRN (05:32)
[2020-10-09 06:08] LABS: BASOPHILS % 0.9 % (0.0-2.0); EOSINOPHILS % 1.7 % (0.0-5.0); HEMATOCRIT. 24.3 % (36.0-48.0); MEAN CORPUSCULAR HEMOGLOBIN 31.9 pg (28.0-32.0); MEAN CORPUSCULAR VOLUME 96.4 fL (81.0-99.0); MEAN PLATELET VOLUME 8.4 fl (7.4-10.4); MONOCYTES % 6.6 % (2.0-8.0); NEUTROPHILS % 78.8 % (40.0-76.0); PLATELET 91 x1000/uL (130-400); RED BLOOD CELL COUNT 2.52 mill/uL (4.2-5.4); RED CELL DISTRIBUTION WIDTH 18.5 % (11.6-14.6)
[2020-10-09] MEDS: FLUDROCORTISONE ACETATE 0.1MG TABLET PO SCH (08:55)
[2020-10-09] MEDS: LACTULOSE 20G/30ML UDC PO SCH ×4 (08:55→20:51)
[2020-10-09] MEDS: PANTOPRAZOLE SODIUM 40 MG/VIAL IV SCH ×2 (08:55→17:19)
[2020-10-09] MEDS: FOLIC ACID 1MG TABLET PO SCH (08:56)
[2020-10-09] MEDS: MIDODRINE HCL 5MG TABLET PO SCH ×3 (08:56→17:18)
[2020-10-09] MEDS: THIAMINE HCL 100MG TABLET PO SCH (08:56)
[2020-10-09] MEDS: HYDROMORPHONE HCL 2MG TABLET PO PRN ×3 (08:57→22:36)
[2020-10-09] MEDS: NICOTINE 21MG PATCH TD SCH (09:11)
[2020-10-09] MEDS: RIFAXIMIN 550 MG TABLET PO SCH ×2 (09:11→20:51)
[2020-10-09] MEDS: SIMETHICONE 80MG TABLET CHEW PO PRN ×2 (11:57→22:33)
[2020-10-09] MEDS: LORAZEPAM 2MG/ML CPJ IV PRN ×2 (12:11→19:44)
[2020-10-09] MEDS ORDERED: METOCLOPRAMIDE HCL 10MG/2ML VIAL IV NR ×2 (16:00→22:00)
[2020-10-09] MEDS ORDERED: BISACODYL 5MG TABLET PO NR ×2 (16:00→22:00)
[2020-10-09] MEDS ORDERED: SORBITOL 70% SOLN 30ML PO NR ×2 (16:00→22:00)
[2020-10-09] MEDS: MEGESTROL ACETATE 400 MG/10 ML UDC PO SCH (18:33)
[2020-10-09] MEDS: QUETIAPINE FUMARATE 50MG TABLET PO SCH (20:51)
[2020-10-10] VITALS (96 sets, daily range): BP systolic 91–151; BP diastolic 41–132
[2020-10-10] MEDS: HYDROMORPHONE HCL/PF 2MG/ML CPJ IV PRN ×6 (01:00→23:39)
[2020-10-10] MEDS: IPRATROPIUM BROMIDE (0.02%) 0.5MG/2.5ML NEB HHN SCH ×4 (02:11→20:01)
[2020-10-10] MEDS: LORAZEPAM 2MG/ML CPJ IV PRN ×2 (03:44→16:35)
[2020-10-10] MEDS ORDERED: METOCLOPRAMIDE HCL 10MG/2ML VIAL IV NR ×3 (05:30→23:30)
[2020-10-10] MEDS ORDERED: BISACODYL 5MG TABLET PO NR ×3 (05:30→23:30)
[2020-10-10] MEDS ORDERED: SORBITOL 70% SOLN 30ML PO NR (06:00)
[2020-10-10 06:01] LABS: BASOPHILS % 0.9 % (0.0-2.0); EOSINOPHILS % 1.6 % (0.0-5.0); HEMATOCRIT. 22.4 % (36.0-48.0); HEMOGLOBIN. 7.6 g/dL (12.0-16.0); LYMPHOCYTES % 13.7 % (20.0-50.0); MEAN CORPUSCULAR HEMOGLOBIN 34.1 pg (28.0-32.0); MEAN CORPUSCULAR VOLUME 100.3 fL (81.0-99.0); MEAN PLATELET VOLUME 8.4 fl (7.4-10.4); MONOCYTES % 7.9 % (2.0-8.0); NEUTROPHILS % 75.9 % (40.0-76.0); PLATELET 89 x1000/uL (130-400); RED BLOOD CELL COUNT 2.24 mill/uL (4.2-5.4); RED CELL DISTRIBUTION WIDTH 18.8 % (11.6-14.6)
[2020-10-10] MEDS: LACTULOSE 20G/30ML UDC PO SCH ×5 (08:54→21:11)
[2020-10-10] MEDS: MEGESTROL ACETATE 400 MG/10 ML UDC PO SCH (08:54)
[2020-10-10] MEDS: NICOTINE 21MG PATCH TD SCH (08:55)
[2020-10-10] MEDS: MIDODRINE HCL 5MG TABLET PO SCH ×3 (08:56→16:34)
[2020-10-10] MEDS: FOLIC ACID 1MG TABLET PO SCH (08:56)
[2020-10-10] MEDS: RIFAXIMIN 550 MG TABLET PO SCH (08:56)
[2020-10-10] MEDS: THIAMINE HCL 100MG TABLET PO SCH (08:57)
[2020-10-10] MEDS: PANTOPRAZOLE SODIUM 40 MG/VIAL IV SCH ×2 (08:57→16:34)
[2020-10-10] MEDS: FLUDROCORTISONE ACETATE 0.1MG TABLET PO SCH (08:57)
[2020-10-10] MEDS ORDERED: POTASSIUM CHLORIDE 20MEQ TABLET SR PO SCH (09:00)
[2020-10-10] MEDS ORDERED: DIGOXIN 500MCG/2ML AMP IV NR (09:43)
[2020-10-10] MEDS: SORBITOL 70% SOLN 30ML PO NR ×2 (12:03→12:14)
[2020-10-10] MEDS: PHENYLEPHRINE 100 MG in DEXT 5% WATER 250 ML IV PRN (12:05)
[2020-10-10] MEDS: QUETIAPINE FUMARATE 50MG TABLET PO SCH (21:11)
[2020-10-10] MEDS: HYDROMORPHONE HCL 2MG TABLET PO PRN (21:13)
[2020-10-10] MEDS: SIMETHICONE 80MG TABLET CHEW PO PRN (23:38)
[2020-10-11] VITALS (98 sets, daily range): BP systolic 73–166; BP diastolic 17–103
[2020-10-11] MEDS ORDERED: SORBITOL 70% SOLN 30ML PO NR
[2020-10-11] MEDS: IPRATROPIUM BROMIDE (0.02%) 0.5MG/2.5ML NEB HHN SCH ×4 (02:06→20:18)
[2020-10-11] MEDS: HYDROMORPHONE HCL/PF 2MG/ML CPJ IV PRN ×3 (04:17→22:48)
[2020-10-11] MEDS: LORAZEPAM 2MG/ML CPJ IV PRN ×2 (04:17→10:43)
[2020-10-11] MEDS: PHENYLEPHRINE 100 MG in DEXT 5% WATER 250 ML IV PRN ×2 (05:22→16:49)
[2020-10-11] MEDS: HYDROMORPHONE HCL 2MG TABLET PO PRN ×2 (05:25→10:02)
[2020-10-11 05:55] LABS: BASOPHILS % 2.1 % (0.0-2.0); HEMATOCRIT. 23.6 % (36.0-48.0); HEMOGLOBIN. 7.8 g/dL (12.0-16.0); LYMPHOCYTES % 14.1 % (20.0-50.0); MEAN CORPUSCULAR VOLUME 99.6 fL (81.0-99.0); MEAN PLATELET VOLUME 8.5 fl (7.4-10.4); MONOCYTES % 6.8 % (2.0-8.0); PLATELET 102 x1000/uL (130-400); RED BLOOD CELL COUNT 2.37 mill/uL (4.2-5.4); RED CELL DISTRIBUTION WIDTH 18.8 % (11.6-14.6)
[2020-10-11 09:50] LABS: BG BASE EXCESS -5.7 mmol/L (-2.0-2.0); BG CARBOXYHEMOGLOBIN 0.7 % (0.5-1.5); BG DEOXYHEMOGLOBIN 2.4 % (0.0-5.0); BG FRACTION INSPIRED OXYGEN 40; BG HCO3 ACT 21.1 mmol/L (22.0-26.0); BG METHEMOGLOBIN 0.1 % (0.0-1.5); BG OXYGEN SATURATION 97.6 % (92.0-98.5); BG OXYHEMOGLOBIN 96.8 % (94.0-97.0); BG PCO2 48.6 mmHg (35.0-45.0); BG PH 7.256 (7.350-7.450); BG PO2 106.2 mmHg (75.0-100.0); BG SAMPLE SITE LEFT RADIAL; BG TOTAL HEMOGLOBIN 8.2 g/dL (12.0-18.0); BG VENT MODE NASAL CANNULA
[2020-10-11] MEDS ORDERED: POTASSIUM CHLORIDE 20MEQ/PACKET PO SCH (10:00)
[2020-10-11] MEDS: PANTOPRAZOLE SODIUM 40 MG/VIAL IV SCH ×2 (10:00→17:10)
[2020-10-11] MEDS: FOLIC ACID 1MG TABLET PO SCH (10:01)
[2020-10-11] MEDS: THIAMINE HCL 100MG TABLET PO SCH (10:01)
[2020-10-11] MEDS: MIDODRINE HCL 5MG TABLET PO SCH ×3 (10:01→17:11)
[2020-10-11] MEDS: MEGESTROL ACETATE 400 MG/10 ML UDC PO SCH (10:01)
[2020-10-11] MEDS: NICOTINE 21MG PATCH TD SCH (10:03)
[2020-10-11] MEDS: FLUDROCORTISONE ACETATE 0.1MG TABLET PO SCH (10:43)
[2020-10-11] MEDS: LACTULOSE 20G/30ML UDC PO SCH ×4 (10:52→20:54)
[2020-10-11] MEDS ORDERED: OCTREOTIDE 1,000 MCG in SODIUM CHLORIDE 0.9% 98 ML IV PRN (19:30)
[2020-10-11] MEDS: QUETIAPINE FUMARATE 50MG TABLET PO SCH (20:54)
[2020-10-12] VITALS (91 sets, daily range): BP systolic 87–146; BP diastolic 40–97
[2020-10-12] MEDS: LORAZEPAM 2MG/ML CPJ IV PRN (01:52)
[2020-10-12] MEDS: IPRATROPIUM BROMIDE (0.02%) 0.5MG/2.5ML NEB HHN SCH ×4 (02:25→20:35)
[2020-10-12] MEDS: HYDROMORPHONE HCL/PF 2MG/ML CPJ IV PRN ×7 (02:28→20:39)
[2020-10-12 05:58] LABS: BASOPHILS % 0.9 % (0.0-2.0); EOSINOPHILS % 2.1 % (0.0-5.0); HEMOGLOBIN. 8.4 g/dL (12.0-16.0); LYMPHOCYTES % 11.7 % (20.0-50.0); MEAN CORPUSCULAR HEMOGLOBIN 33.7 pg (28.0-32.0); MEAN CORPUSCULAR VOLUME 100.6 fL (81.0-99.0); MEAN PLATELET VOLUME 8.1 fl (7.4-10.4); NEUTROPHILS % 77.3 % (40.0-76.0); PLATELET 92 x1000/uL (130-400); RED BLOOD CELL COUNT 2.49 mill/uL (4.2-5.4); RED CELL DISTRIBUTION WIDTH 18.4 % (11.6-14.6)
[2020-10-12 05:58] LABS: INR 1.5; PROTHROMBIN TIME 15.2 sec (9.6-11.0)
[2020-10-12 06:04] LABS: PHOSPHORUS 2.7 mg/dL (2.5-4.9)
[2020-10-12] MEDS: PANTOPRAZOLE SODIUM 40 MG/VIAL IV SCH ×2 (08:05→16:08)
[2020-10-12] MEDS: NICOTINE 21MG PATCH TD SCH (08:06)
[2020-10-12] MEDS: MIDODRINE HCL 5MG TABLET PO SCH ×3 (08:07→16:09)
[2020-10-12] MEDS: THIAMINE HCL 100MG TABLET PO SCH (08:07)
[2020-10-12] MEDS: FOLIC ACID 1MG TABLET PO SCH (08:07)
[2020-10-12] MEDS: FLUDROCORTISONE ACETATE 0.1MG TABLET PO SCH (08:07)
[2020-10-12] MEDS: MEGESTROL ACETATE 400 MG/10 ML UDC PO SCH (08:07)
[2020-10-12] MEDS: LACTULOSE 20G/30ML UDC PO SCH ×3 (09:00→12:36)
[2020-10-12] MEDS ORDERED: POTASSIUM CHLORIDE INJ 40 MEQ in DEXT 5% WATER 250 ML IV SCH (09:00)
[2020-10-12] MEDS: SORBITOL 70% SOLN 30ML PO SCH ×4 (12:35→23:42)
[2020-10-12] MEDS: QUETIAPINE FUMARATE 50MG TABLET PO SCH (20:39)
[2020-10-13] VITALS (40 sets, daily range): BP systolic 91–134; BP diastolic 42–76
[2020-10-13] MEDS: HYDROMORPHONE HCL/PF 2MG/ML CPJ IV PRN ×7 (00:34→23:01)
[2020-10-13] MEDS: IPRATROPIUM BROMIDE (0.02%) 0.5MG/2.5ML NEB HHN SCH ×4 (02:04→20:14)
[2020-10-13 05:25] LABS: EOSINOPHILS % 1.9 % (0.0-5.0); HEMATOCRIT. 25.8 % (36.0-48.0); HEMOGLOBIN. 8.7 g/dL (12.0-16.0); LYMPHOCYTES % 15.9 % (20.0-50.0); MEAN CORPUSCULAR HEMOGLOBIN 33.7 pg (28.0-32.0); MEAN PLATELET VOLUME 8.1 fl (7.4-10.4); MONOCYTES % 7.7 % (2.0-8.0); NEUTROPHILS % 73.5 % (40.0-76.0); PLATELET 100 x1000/uL (130-400); RED BLOOD CELL COUNT 2.58 mill/uL (4.2-5.4); RED CELL DISTRIBUTION WIDTH 18.5 % (11.6-14.6)
[2020-10-13 05:29] LABS: CHLORIDE 113 mEq/L (98-107)
[2020-10-13 05:49] LABS: INR 1.4; PARTIAL THROMBOPLASTIN TIME 35.8 sec (23.4-31.0); PROTHROMBIN TIME 14.6 sec (9.6-11.0)
[2020-10-13 08:25] LABS: BG BASE EXCESS -1.2 mmol/L (-2.0-2.0); BG CARBOXYHEMOGLOBIN 1.2 % (0.5-1.5); BG DEOXYHEMOGLOBIN 3.6 % (0.0-5.0); BG FRACTION INSPIRED OXYGEN 30; BG HCO3 ACT 23.7 mmol/L (22.0-26.0); BG METHEMOGLOBIN 0.2 % (0.0-1.5); BG OXYGEN SATURATION 96.3 % (92.0-98.5); BG PCO2 40.4 mmHg (35.0-45.0); BG PH 7.386 (7.350-7.450); BG PO2 82.5 mmHg (75.0-100.0); BG SAMPLE SITE RIGHT RADIAL; BG TOTAL HEMOGLOBIN 8.4 g/dL (12.0-18.0); BG TOTAL RESPIRATORY RATE 18 b/min; BG VENT MODE MASK - BIPAP
[2020-10-13] MEDS: FOLIC ACID 1MG TABLET PO SCH (09:00)
[2020-10-13] MEDS: LACTULOSE 20G/30ML UDC PO SCH (09:00)
[2020-10-13] MEDS: MEGESTROL ACETATE 400 MG/10 ML UDC PO SCH (09:00)
[2020-10-13] MEDS: MIDODRINE HCL 5MG TABLET PO SCH ×3 (09:00→17:53)
[2020-10-13] MEDS: THIAMINE HCL 100MG TABLET PO SCH (09:00)
[2020-10-13] MEDS: FLUDROCORTISONE ACETATE 0.1MG TABLET PO SCH (09:00)
[2020-10-13] MEDS: LORAZEPAM 2MG/ML CPJ IV PRN (09:49)
[2020-10-13] MEDS: NICOTINE 21MG PATCH TD SCH (09:50)
[2020-10-13] MEDS: PANTOPRAZOLE SODIUM 40 MG/VIAL IV SCH ×2 (09:50→17:53)
[2020-10-13] MEDS ORDERED: PROPOFOL 200MG/20ML VIAL IV ONE (12:19)
[2020-10-13] MEDS ORDERED: PHENYLEPHRINE HCL 10 MG/ML 1ML (IV VIAL) IV ONE (12:21)
[2020-10-13] MEDS ORDERED: STERILE WATER FOR INJECTION 10ML VIAL ONE (12:21)
[2020-10-13] MEDS: HYDROMORPHONE HCL 2MG TABLET PO PRN (15:40)
[2020-10-13] MEDS: QUETIAPINE FUMARATE 50MG TABLET PO SCH (20:54)
[2020-10-14] VITALS (23 sets, daily range): BP systolic 84–143; BP diastolic 31–86
[2020-10-14] MEDS: IPRATROPIUM BROMIDE (0.02%) 0.5MG/2.5ML NEB HHN SCH ×4 (01:49→23:52)
[2020-10-14] MEDS: HYDROMORPHONE HCL/PF 2MG/ML CPJ IV PRN ×5 (02:30→21:12)
[2020-10-14 05:22] LABS: BASOPHILS % 1.3 % (0.0-2.0); EOSINOPHILS % 3.2 % (0.0-5.0); HEMATOCRIT. 26.2 % (36.0-48.0); HEMOGLOBIN. 8.6 g/dL (12.0-16.0); LYMPHOCYTES % 17.7 % (20.0-50.0); MEAN CORPUSCULAR HEMOGLOBIN 32.3 pg (28.0-32.0); MEAN CORPUSCULAR VOLUME 98.3 fL (81.0-99.0); MEAN PLATELET VOLUME 8.3 fl (7.4-10.4); MONOCYTES % 8.2 % (2.0-8.0); NEUTROPHILS % 69.6 % (40.0-76.0); PLATELET 99 x1000/uL (130-400); RED BLOOD CELL COUNT 2.66 mill/uL (4.2-5.4); RED CELL DISTRIBUTION WIDTH 18.8 % (11.6-14.6)
[2020-10-14] MEDS: PANTOPRAZOLE SODIUM 40 MG/VIAL IV SCH ×2 (08:58→17:48)
[2020-10-14] MEDS: FLUDROCORTISONE ACETATE 0.1MG TABLET PO SCH (08:59)
[2020-10-14] MEDS: LACTULOSE 20G/30ML UDC PO SCH (08:59)
[2020-10-14] MEDS: MEGESTROL ACETATE 400 MG/10 ML UDC PO SCH (08:59)
[2020-10-14] MEDS: MIDODRINE HCL 5MG TABLET PO SCH ×3 (08:59→17:47)
[2020-10-14] MEDS: NICOTINE 21MG PATCH TD SCH (08:59)
[2020-10-14] MEDS: FOLIC ACID 1MG TABLET PO SCH (08:59)
[2020-10-14] MEDS: THIAMINE HCL 100MG TABLET PO SCH (09:00)
[2020-10-14] MEDS ORDERED: POTASSIUM CHLORIDE 20MEQ TABLET SR PO SCH (11:30)
[2020-10-14 12:55] LABS: HEMATOCRIT 22.9 % (36.0-48.0); HEMOGLOBIN 7.6 g/dL (12.0-16.0)
[2020-10-14] MEDS: HYDROMORPHONE HCL 2MG TABLET PO PRN (13:05)
[2020-10-14] MEDS: SIMETHICONE 80MG TABLET CHEW PO PRN (13:06)
[2020-10-14 19:27] LABS: HEMATOCRIT 24.7 % (36.0-48.0)
[2020-10-14] MEDS: QUETIAPINE FUMARATE 50MG TABLET PO SCH (21:12)
[2020-10-15] VITALS (12 sets, daily range): BP systolic 90–121; BP diastolic 52–75
[2020-10-15 00:43] LABS: HEMATOCRIT 24.6 % (36.0-48.0); HEMOGLOBIN 7.9 g/dL (12.0-16.0)
[2020-10-15] MEDS: IPRATROPIUM BROMIDE (0.02%) 0.5MG/2.5ML NEB HHN SCH ×4 (03:13→20:50)
[2020-10-15 06:48] LABS: INR 1.5; PROTHROMBIN TIME 15.2 sec (9.6-11.0)
[2020-10-15 07:16] LABS: BASOPHILS % 1.7 % (0.0-2.0); EOSINOPHILS % 2.7 % (0.0-5.0); HEMATOCRIT. 22.6 % (36.0-48.0); HEMOGLOBIN. 7.6 g/dL (12.0-16.0); LYMPHOCYTES % 13.2 % (20.0-50.0); MEAN CORPUSCULAR HEMOGLOBIN 32.6 pg (28.0-32.0); MEAN CORPUSCULAR VOLUME 97.6 fL (81.0-99.0); MONOCYTES % 8.9 % (2.0-8.0); NEUTROPHILS % 73.5 % (40.0-76.0); PLATELET 98 x1000/uL (130-400); RED BLOOD CELL COUNT 2.32 mill/uL (4.2-5.4)
[2020-10-15] MEDS: HYDROMORPHONE HCL/PF 2MG/ML CPJ IV PRN ×3 (08:23→17:03)
[2020-10-15] MEDS: MEGESTROL ACETATE 400 MG/10 ML UDC PO SCH (08:35)
[2020-10-15] MEDS: LACTULOSE 20G/30ML UDC PO SCH (08:35)
[2020-10-15] MEDS: PANTOPRAZOLE SODIUM 40 MG/VIAL IV SCH ×2 (08:35→16:56)
[2020-10-15] MEDS: THIAMINE HCL 100MG TABLET PO SCH (08:36)
[2020-10-15] MEDS: FLUDROCORTISONE ACETATE 0.1MG TABLET PO SCH (08:36)
[2020-10-15] MEDS: MIDODRINE HCL 5MG TABLET PO SCH ×3 (08:36→16:56)
[2020-10-15] MEDS: FOLIC ACID 1MG TABLET PO SCH (08:36)
[2020-10-15] MEDS: NICOTINE 21MG PATCH TD SCH (08:37)
[2020-10-15 12:23] LABS: HEMATOCRIT 23.7 % (36.0-48.0); HEMOGLOBIN 7.9 g/dL (12.0-16.0)
[2020-10-15] MEDS: DILTIAZEM HCL 30MG TABLET PO SCH (16:57)
[2020-10-15 20:30] LABS: HEMATOCRIT 25.5 % (36.0-48.0); HEMOGLOBIN 8.1 g/dL (12.0-16.0)
[2020-10-15] MEDS: QUETIAPINE FUMARATE 50MG TABLET PO SCH (20:54)
[2020-10-16] VITALS (10 sets, daily range): BP systolic 99–145; BP diastolic 46–98
[2020-10-16] MEDS: HYDROMORPHONE HCL/PF 2MG/ML CPJ IV PRN ×5 (01:57→17:21)
[2020-10-16] MEDS: IPRATROPIUM BROMIDE (0.02%) 0.5MG/2.5ML NEB HHN SCH ×4 (02:26→20:29)
[2020-10-16] MEDS: DILTIAZEM HCL 30MG TABLET PO SCH ×4 (06:19→18:00)
[2020-10-16 06:32] LABS: EOSINOPHILS % 1.9 % (0.0-5.0); HEMATOCRIT. 23.1 % (36.0-48.0); HEMOGLOBIN. 7.5 g/dL (12.0-16.0); LYMPHOCYTES % 11.7 % (20.0-50.0); MEAN CORPUSCULAR HEMOGLOBIN 32.8 pg (28.0-32.0); MEAN CORPUSCULAR VOLUME 100.4 fL (81.0-99.0); MEAN PLATELET VOLUME 8.2 fl (7.4-10.4); MONOCYTES % 7.1 % (2.0-8.0); NEUTROPHILS % 78.3 % (40.0-76.0); PLATELET 104 x1000/uL (130-400)
[2020-10-16] MEDS: FOLIC ACID 1MG TABLET PO SCH (09:36)
[2020-10-16] MEDS: THIAMINE HCL 100MG TABLET PO SCH (09:36)
[2020-10-16] MEDS: FLUDROCORTISONE ACETATE 0.1MG TABLET PO SCH (09:36)
[2020-10-16] MEDS: MEGESTROL ACETATE 400 MG/10 ML UDC PO SCH (09:39)
[2020-10-16] MEDS: LACTULOSE 20G/30ML UDC PO SCH (09:39)
[2020-10-16] MEDS: MIDODRINE HCL 5MG TABLET PO SCH ×3 (09:39→15:55)
[2020-10-16] MEDS: NICOTINE 21MG PATCH TD SCH (09:39)
[2020-10-16] MEDS: PANTOPRAZOLE SODIUM 40 MG/VIAL IV SCH ×2 (09:39→19:00)
[2020-10-16] MEDS: NYSTATIN POWDER 15GM TOP SCH ×2 (15:00→23:01)
[2020-10-16] MEDS: ALPRAZOLAM 0.5 MG TABLET PO PRN (15:55)
[2020-10-16 17:18] LABS: CLARITY URINE CLOUDY (CLEAR); COLOR URINE DARK YELLOW (YELLOW); KETONES URINE TRACE (NEGATIVE); LEUKOCYTE ESTERASE URINE 3+ (NEGATIVE); NITRITE URINE NEGATIVE (NEGATIVE); OCCULT BLOOD URINE 1+ (NEGATIVE); PH URINE 5.5 (4.5-8.0); PROTEIN URINE 1+ (NEGATIVE); SPECIFIC GRAVITY URINE 1.015 (1.005-1.030)
[2020-10-16] MEDS: QUETIAPINE FUMARATE 50MG TABLET PO SCH (22:59)
[2020-10-16] MEDS: CEFTRIAXONE 1,000 MG in DEXTROSE 5% WATER 50 ML IV SCH (22:59)
[2020-10-17] VITALS (11 sets, daily range): BP systolic 89–117; BP diastolic 32–77
[2020-10-17] MEDS: IPRATROPIUM BROMIDE (0.02%) 0.5MG/2.5ML NEB HHN SCH ×4 (02:24→20:50)
[2020-10-17] MEDS: DILTIAZEM HCL 30MG TABLET PO SCH ×4 (05:46→19:24)
[2020-10-17] MEDS: HYDROMORPHONE HCL/PF 2MG/ML CPJ IV PRN ×5 (05:47→19:50)
[2020-10-17] MEDS: NYSTATIN POWDER 15GM TOP SCH ×3 (05:49→21:34)
[2020-10-17 07:38] LABS: BASOPHILS % 1.4 % (0.0-2.0); HEMATOCRIT. 21.4 % (36.0-48.0); HEMOGLOBIN. 7.1 g/dL (12.0-16.0); LYMPHOCYTES % 13.9 % (20.0-50.0); MEAN CORPUSCULAR HEMOGLOBIN 33.8 pg (28.0-32.0); MEAN CORPUSCULAR VOLUME 101.5 fL (81.0-99.0); MEAN PLATELET VOLUME 8.1 fl (7.4-10.4); MONOCYTES % 6.2 % (2.0-8.0); NEUTROPHILS % 76.5 % (40.0-76.0); PLATELET 110 x1000/uL (130-400); RED BLOOD CELL COUNT 2.11 mill/uL (4.2-5.4)
[2020-10-17] MEDS: PANTOPRAZOLE SODIUM 40 MG/VIAL IV SCH ×2 (08:22→16:35)
[2020-10-17] MEDS: FLUDROCORTISONE ACETATE 0.1MG TABLET PO SCH (08:22)
[2020-10-17] MEDS: MEGESTROL ACETATE 400 MG/10 ML UDC PO SCH (08:22)
[2020-10-17] MEDS: THIAMINE HCL 100MG TABLET PO SCH (08:22)
[2020-10-17] MEDS: MIDODRINE HCL 5MG TABLET PO SCH ×3 (08:23→16:36)
[2020-10-17] MEDS: NICOTINE 21MG PATCH TD SCH (08:28)
[2020-10-17] MEDS: FOLIC ACID 1MG TABLET PO SCH (08:29)
[2020-10-17] MEDS: LACTULOSE 20G/30ML UDC PO SCH (08:30)
[2020-10-17] MEDS: ALPRAZOLAM 0.5 MG TABLET PO PRN (09:45)
[2020-10-17] MEDS: DIAZEPAM 5 MG TABLET PO SCH (16:35)
[2020-10-17] MEDS: CEFTRIAXONE 1,000 MG in DEXTROSE 5% WATER 50 ML IV SCH (19:56)
[2020-10-17] MEDS: QUETIAPINE FUMARATE 50MG TABLET PO SCH (20:23)
[2020-10-18] VITALS (22 sets, daily range): BP systolic 84–113; BP diastolic 47–75
[2020-10-18] MEDS: HYDROMORPHONE HCL/PF 2MG/ML CPJ IV PRN ×4 (00:22→22:40)
[2020-10-18] MEDS: IPRATROPIUM BROMIDE (0.02%) 0.5MG/2.5ML NEB HHN SCH ×4 (00:46→21:42)
[2020-10-18] MEDS: DILTIAZEM HCL 30MG TABLET PO SCH ×4 (06:00→18:00)
[2020-10-18] MEDS: NYSTATIN POWDER 15GM TOP SCH ×3 (06:07→22:27)
[2020-10-18 06:31] LABS: BASOPHILS % 1.1 % (0.0-2.0); EOSINOPHILS % 2.2 % (0.0-5.0); HEMATOCRIT. 21.8 % (36.0-48.0); HEMOGLOBIN. 7.1 g/dL (12.0-16.0); LYMPHOCYTES % 11.5 % (20.0-50.0); MEAN CORPUSCULAR HEMOGLOBIN 32.2 pg (28.0-32.0); MEAN CORPUSCULAR VOLUME 98.6 fL (81.0-99.0); MEAN PLATELET VOLUME 8.3 fl (7.4-10.4); MONOCYTES % 7.3 % (2.0-8.0); NEUTROPHILS % 77.9 % (40.0-76.0); PLATELET 116 x1000/uL (130-400); RED BLOOD CELL COUNT 2.21 mill/uL (4.2-5.4); RED CELL DISTRIBUTION WIDTH 18.6 % (11.6-14.6)
[2020-10-18] MEDS ORDERED: APIXABAN 5 MG TABLET PO SCH (09:00)
[2020-10-18] MEDS: MEGESTROL ACETATE 400 MG/10 ML UDC PO SCH (09:23)
[2020-10-18] MEDS: FLUDROCORTISONE ACETATE 0.1MG TABLET PO SCH (09:24)
[2020-10-18] MEDS: FOLIC ACID 1MG TABLET PO SCH (09:24)
[2020-10-18] MEDS: DIAZEPAM 5 MG TABLET PO SCH (09:24)
[2020-10-18] MEDS: THIAMINE HCL 100MG TABLET PO SCH (09:24)
[2020-10-18] MEDS: MIDODRINE HCL 5MG TABLET PO SCH ×3 (10:15→22:28)
[2020-10-18 10:33] LABS: BG BASE EXCESS -3.4 mmol/L (-2.0-2.0); BG FRACTION INSPIRED OXYGEN 32; BG HCO3 ACT 24.5 mmol/L (22.0-26.0); BG METHEMOGLOBIN 0.4 % (0.0-1.5); BG OXYGEN SATURATION 93.9 % (92.0-98.5); BG OXYHEMOGLOBIN 92.6 % (94.0-97.0); BG PCO2 61.5 mmHg (35.0-45.0); BG PH 7.218 (7.350-7.450); BG SAMPLE SITE LEFT RADIAL; BG VENT MODE NASAL CANNULA
[2020-10-18] MEDS ORDERED: FUROSEMIDE 20MG/2ML VIAL IVP SCH (12:30)
[2020-10-18 12:44] LABS: BG BASE EXCESS -1.4 mmol/L (-2.0-2.0); BG CARBOXYHEMOGLOBIN 0.5 % (0.5-1.5); BG DEOXYHEMOGLOBIN 2.5 % (0.0-5.0); BG FRACTION INSPIRED OXYGEN 50; BG HCO3 ACT 25.9 mmol/L (22.0-26.0); BG METHEMOGLOBIN 0.3 % (0.0-1.5); BG OXYGEN SATURATION 97.5 % (92.0-98.5); BG OXYHEMOGLOBIN 96.7 % (94.0-97.0); BG PCO2 59.6 mmHg (35.0-45.0); BG PH 7.256 (7.350-7.450); BG PO2 104.3 mmHg (75.0-100.0); BG SAMPLE SITE LEFT RADIAL; BG TOTAL HEMOGLOBIN 7.4 g/dL (12.0-18.0); BG TOTAL RESPIRATORY RATE 31 b/min; BG VENT MODE MASK - BIPAP
[2020-10-18] MEDS: PHENYLEPHRINE 50 MG in DEXT 5% WATER 245 ML IV PRN ×3 (13:56→22:30)
[2020-10-18] MEDS ORDERED: FLUMAZENIL 0.1 MG/ML 5ML VIAL IV NR (15:30)
[2020-10-18 16:03] LABS: BG BASE EXCESS -2.8 mmol/L (-2.0-2.0); BG CARBOXYHEMOGLOBIN 0.8 % (0.5-1.5); BG DEOXYHEMOGLOBIN 1.6 % (0.0-5.0); BG FRACTION INSPIRED OXYGEN 50; BG HCO3 ACT 24.4 mmol/L (22.0-26.0); BG METHEMOGLOBIN 0.3 % (0.0-1.5); BG OXYGEN SATURATION 98.4 % (92.0-98.5); BG OXYHEMOGLOBIN 97.3 % (94.0-97.0); BG PCO2 56.7 mmHg (35.0-45.0); BG PH 7.252 (7.350-7.450); BG PO2 120.9 mmHg (75.0-100.0); BG SAMPLE SITE RIGHT RADIAL; BG TOTAL HEMOGLOBIN 7.9 g/dL (12.0-18.0); BG TOTAL RESPIRATORY RATE 25 b/min; BG VENT MODE MASK - BIPAP
[2020-10-18] MEDS: QUETIAPINE FUMARATE 50MG TABLET PO SCH (20:32)
[2020-10-18] MEDS: CEFTRIAXONE 1,000 MG in DEXTROSE 5% WATER 50 ML IV SCH (22:27)
[2020-10-19] VITALS (78 sets, daily range): BP systolic 77–146; BP diastolic 39–90
[2020-10-19] MEDS: DILTIAZEM HCL 30MG TABLET PO SCH ×2 (01:17→05:29)
[2020-10-19] MEDS: PHENYLEPHRINE 50 MG in DEXT 5% WATER 245 ML IV PRN (02:01)
[2020-10-19] MEDS: IPRATROPIUM BROMIDE (0.02%) 0.5MG/2.5ML NEB HHN SCH ×4 (02:16→20:40)
[2020-10-19] MEDS: PHENYLEPHRINE 100 MG in DEXT 5% WATER 240 ML IV PRN ×4 (04:22→19:24)
[2020-10-19] MEDS: MIDODRINE HCL 5MG TABLET PO SCH ×3 (05:29→21:35)
[2020-10-19] MEDS: NYSTATIN POWDER 15GM TOP SCH ×3 (05:30→21:36)
[2020-10-19] MEDS: HYDROMORPHONE HCL/PF 2MG/ML CPJ IV PRN ×5 (05:33→19:35)
[2020-10-19 05:52] LABS: BASOPHILS % 0.4 % (0.0-2.0); EOSINOPHILS % 2.8 % (0.0-5.0); LYMPHOCYTES % 10.3 % (20.0-50.0); MEAN CORPUSCULAR HEMOGLOBIN 35.9 pg (28.0-32.0); MEAN CORPUSCULAR VOLUME 106.3 fL (81.0-99.0); MONOCYTES % 7.2 % (2.0-8.0); NEUTROPHILS % 79.3 % (40.0-76.0); RED BLOOD CELL COUNT 1.78 mill/uL (4.2-5.4); RED CELL DISTRIBUTION WIDTH 18.5 % (11.6-14.6)
[2020-10-19 05:53] LABS: CHLORIDE 97 mEq/L (98-107)
[2020-10-19 06:11] LABS: HEMATOCRIT. 18.9 % (36.0-48.0); HEMOGLOBIN. 6.4 g/dL (12.0-16.0)
[2020-10-19 07:29] LABS: BG BASE EXCESS -2.8 mmol/L (-2.0-2.0); BG CARBOXYHEMOGLOBIN 1.5 % (0.5-1.5); BG DEOXYHEMOGLOBIN 3.5 % (0.0-5.0); BG FRACTION INSPIRED OXYGEN 35; BG METHEMOGLOBIN 0.3 % (0.0-1.5); BG OXYGEN SATURATION 96.4 % (92.0-98.5); BG OXYHEMOGLOBIN 94.7 % (94.0-97.0); BG PCO2 53.4 mmHg (35.0-45.0); BG PH 7.271 (7.350-7.450); BG PO2 87.3 mmHg (75.0-100.0); BG SAMPLE SITE RIGHT BRACHIAL; BG TOTAL HEMOGLOBIN 7.5 g/dL (12.0-18.0); BG TOTAL RESPIRATORY RATE 24 b/min; BG VENT MODE MASK - BIPAP
[2020-10-19] MEDS: FLUDROCORTISONE ACETATE 0.1MG TABLET PO SCH (09:03)
[2020-10-19] MEDS: FUROSEMIDE 40MG/4ML VIAL IVP SCH (09:03)
[2020-10-19] MEDS: MEGESTROL ACETATE 400 MG/10 ML UDC PO SCH (09:03)
[2020-10-19] MEDS ORDERED: ONDANSETRON HCL 4MG/2ML INJ IV PRN (09:30)
[2020-10-19] MEDS: PANTOPRAZOLE SODIUM 40 MG/VIAL IV SCH (09:36)
[2020-10-19] MEDS ORDERED: DIGOXIN 500MCG/2ML AMP IV NR (10:10)
[2020-10-19] MEDS: FOLIC ACID 1MG TABLET PO SCH (10:27)
[2020-10-19] MEDS: THIAMINE HCL 100MG TABLET PO SCH (10:27)
[2020-10-19] MEDS: RIFAXIMIN 550 MG TABLET PO SCH ×2 (10:27→21:36)
[2020-10-19] MEDS: LACTULOSE 20G/30ML UDC PO SCH ×2 (10:28→21:35)
[2020-10-19] MEDS ORDERED: POTASSIUM CHLORIDE INJ 40 MEQ in DEXT 5% WATER 250 ML IV NR (11:00)
[2020-10-19] MEDS: METOCLOPRAMIDE HCL 10MG/2ML VIAL IV SCH ×2 (12:24→17:24)
[2020-10-19 12:38] LABS: MEAN PLATELET VOLUME 7.9 fl (7.4-10.4); PLATELET 143 x1000/uL (130-400)
[2020-10-19] MEDS ORDERED: MAGNESIUM 2 G PREMIX 50 ML IV NR (13:00)
[2020-10-19] MEDS ORDERED: POTA20TA82 PO (13:37)
[2020-10-19] MEDS ORDERED: DILT30TA3 PO (13:51)
[2020-10-19] MEDS ORDERED: FURO80TA3 PO (13:52)
[2020-10-19] MEDS ORDERED: DIPHENHYDRAMINE 25MG CAPSULE PO PRN (15:00)
[2020-10-19] MEDS: CEFTRIAXONE 1,000 MG in DEXTROSE 5% WATER 50 ML IV SCH (19:34)
[2020-10-19 20:47] LABS: HEMATOCRIT 27.7 % (36.0-48.0); HEMOGLOBIN 9.1 g/dL (12.0-16.0)
[2020-10-19] MEDS: QUETIAPINE FUMARATE 50MG TABLET PO SCH (21:36)
[2020-10-20] VITALS (95 sets, daily range): BP systolic 77–143; BP diastolic 31–118
[2020-10-20] MEDS: PHENYLEPHRINE 100 MG in DEXT 5% WATER 240 ML IV PRN ×4 (00:04→13:47)
[2020-10-20] MEDS: METOCLOPRAMIDE HCL 10MG/2ML VIAL IV SCH ×4 (00:04→18:16)
[2020-10-20] MEDS: HYDROMORPHONE HCL/PF 2MG/ML CPJ IV PRN ×3 (00:31→22:00)
[2020-10-20] MEDS: IPRATROPIUM BROMIDE (0.02%) 0.5MG/2.5ML NEB HHN SCH ×4 (00:54→21:04)
[2020-10-20] MEDS: MIDODRINE HCL 5MG TABLET PO SCH ×3 (05:10→21:02)
[2020-10-20] MEDS: NYSTATIN POWDER 15GM TOP SCH ×3 (05:10→21:03)
[2020-10-20] MEDS: PANTOPRAZOLE SODIUM 40 MG/VIAL IV SCH (09:14)
[2020-10-20] MEDS: MEGESTROL ACETATE 400 MG/10 ML UDC PO SCH (09:14)
[2020-10-20] MEDS: LACTULOSE 20G/30ML UDC PO SCH ×3 (09:14→18:15)
[2020-10-20 09:15] LABS: BASOPHILS % 1.3 % (0.0-2.0); EOSINOPHILS % 3.3 % (0.0-5.0); HEMATOCRIT. 28.1 % (36.0-48.0); HEMOGLOBIN. 9.1 g/dL (12.0-16.0); LYMPHOCYTES % 13.9 % (20.0-50.0); MEAN CORPUSCULAR HEMOGLOBIN 31.1 pg (28.0-32.0); MEAN CORPUSCULAR VOLUME 96.1 fL (81.0-99.0); MEAN PLATELET VOLUME 7.7 fl (7.4-10.4); MONOCYTES % 8.1 % (2.0-8.0); NEUTROPHILS % 73.4 % (40.0-76.0); PLATELET 166 x1000/uL (130-400); RED BLOOD CELL COUNT 2.93 mill/uL (4.2-5.4); RED CELL DISTRIBUTION WIDTH 18.5 % (11.6-14.6)
[2020-10-20] MEDS: FUROSEMIDE 40MG/4ML VIAL IVP SCH (09:15)
[2020-10-20] MEDS: FLUDROCORTISONE ACETATE 0.1MG TABLET PO SCH (09:15)
[2020-10-20] MEDS: FOLIC ACID 1MG TABLET PO SCH (09:15)
[2020-10-20] MEDS: ZINC SULFATE 220 MG ( 50 ) CAPSULE PO SCH (09:16)
[2020-10-20] MEDS: THIAMINE HCL 100MG TABLET PO SCH (09:16)
[2020-10-20] MEDS: RIFAXIMIN 550 MG TABLET PO SCH ×2 (09:16→21:01)
[2020-10-20] MEDS: ALPRAZOLAM 0.5 MG TABLET PO PRN (11:01)
[2020-10-20] MEDS: LINEZOLID 600MG TABLET PO SCH ×2 (12:21→21:59)
[2020-10-20] MEDS: DIGOXIN 500MCG/2ML AMP IV SCH (18:16)
[2020-10-20] MEDS: QUETIAPINE FUMARATE 50MG TABLET PO SCH (21:02)
[2020-10-21] VITALS (112 sets, daily range): BP systolic 31–152; BP diastolic 13–104
[2020-10-21] MEDS: METOCLOPRAMIDE HCL 10MG/2ML VIAL IV SCH ×4 (00:26→17:06)
[2020-10-21] MEDS: ALPRAZOLAM 0.5 MG TABLET PO PRN (01:01)
[2020-10-21] MEDS: IPRATROPIUM BROMIDE (0.02%) 0.5MG/2.5ML NEB HHN SCH ×4 (02:25→21:42)
[2020-10-21] MEDS: PHENYLEPHRINE 100 MG in DEXT 5% WATER 240 ML IV PRN ×2 (03:40→17:04)
[2020-10-21] MEDS: MIDODRINE HCL 5MG TABLET PO SCH ×3 (05:33→21:12)
[2020-10-21] MEDS: HYDROMORPHONE HCL/PF 2MG/ML CPJ IV PRN ×3 (05:35→12:40)
[2020-10-21] MEDS: NYSTATIN POWDER 15GM TOP SCH ×3 (05:36→21:11)
[2020-10-21 05:41] LABS: BASOPHILS % 1.3 % (0.0-2.0); EOSINOPHILS % 2.3 % (0.0-5.0); HEMATOCRIT. 25.5 % (36.0-48.0); HEMOGLOBIN. 8.3 g/dL (12.0-16.0); LYMPHOCYTES % 11.5 % (20.0-50.0); MEAN CORPUSCULAR HEMOGLOBIN 31.1 pg (28.0-32.0); MEAN CORPUSCULAR VOLUME 95.3 fL (81.0-99.0); MONOCYTES % 5.6 % (2.0-8.0); NEUTROPHILS % 79.3 % (40.0-76.0); PLATELET 129 x1000/uL (130-400); RED BLOOD CELL COUNT 2.68 mill/uL (4.2-5.4); RED CELL DISTRIBUTION WIDTH 18.4 % (11.6-14.6)
[2020-10-21] MEDS: LACTULOSE 20G/30ML UDC PO SCH ×3 (08:31→17:04)
[2020-10-21] MEDS: FUROSEMIDE 40MG/4ML VIAL IVP SCH (08:31)
[2020-10-21] MEDS: ZINC SULFATE 220 MG ( 50 ) CAPSULE PO SCH (08:31)
[2020-10-21] MEDS: FLUDROCORTISONE ACETATE 0.1MG TABLET PO SCH (08:31)
[2020-10-21] MEDS: MEGESTROL ACETATE 400 MG/10 ML UDC PO SCH (08:31)
[2020-10-21] MEDS: THIAMINE HCL 100MG TABLET PO SCH (08:31)
[2020-10-21] MEDS: RIFAXIMIN 550 MG TABLET PO SCH ×2 (08:32→21:12)
[2020-10-21] MEDS: PANTOPRAZOLE SODIUM 40 MG/VIAL IV SCH (08:32)
[2020-10-21] MEDS: FOLIC ACID 1MG TABLET PO SCH (08:32)
[2020-10-21] MEDS: LINEZOLID 600MG TABLET PO SCH ×2 (08:34→21:11)
[2020-10-21] MEDS ORDERED: ALPRAZOLAM 0.5 MG TABLET PO PRN (12:15)
[2020-10-21] MEDS ORDERED: ALPRAZOLAM 0.5 MG TABLET PO SCH (14:00)
[2020-10-21] MEDS: DIGOXIN 500MCG/2ML AMP IV SCH (17:06)
[2020-10-21] MEDS ORDERED: NOREPINEPHRINE 32 MG in DEXT 5% WATER 218 ML IV PRN (20:45)
[2020-10-21] MEDS ORDERED: ALBUMIN HUMAN 25GM/500ML (5%) IV NR (20:45)
[2020-10-21] MEDS: QUETIAPINE FUMARATE 50MG TABLET PO SCH (21:12)
[2020-10-22] VITALS (96 sets, daily range): BP systolic 71–162; BP diastolic 16–115
[2020-10-22] MEDS: PHENYLEPHRINE 100 MG in DEXT 5% WATER 240 ML IV PRN ×3 (00:04→16:56)
[2020-10-22] MEDS: METOCLOPRAMIDE HCL 10MG/2ML VIAL IV SCH ×3 (00:13→13:59)
[2020-10-22] MEDS: IPRATROPIUM BROMIDE (0.02%) 0.5MG/2.5ML NEB HHN SCH ×4 (02:18→20:05)
[2020-10-22] MEDS: NYSTATIN POWDER 15GM TOP SCH ×3 (05:32→21:11)
[2020-10-22 05:38] LABS: EOSINOPHILS % 1.7 % (0.0-5.0); HEMOGLOBIN. 7.3 g/dL (12.0-16.0); LYMPHOCYTES % 9.9 % (20.0-50.0); MEAN CORPUSCULAR HEMOGLOBIN 31.9 pg (28.0-32.0); MEAN CORPUSCULAR VOLUME 96.2 fL (81.0-99.0); MEAN PLATELET VOLUME 8.1 fl (7.4-10.4); MONOCYTES % 6.8 % (2.0-8.0); NEUTROPHILS % 80.6 % (40.0-76.0); PLATELET 118 x1000/uL (130-400); RED BLOOD CELL COUNT 2.29 mill/uL (4.2-5.4); RED CELL DISTRIBUTION WIDTH 18.2 % (11.6-14.6)
[2020-10-22] MEDS: MIDODRINE HCL 5MG TABLET PO SCH ×3 (05:47→21:12)
[2020-10-22] MEDS: MEGESTROL ACETATE 400 MG/10 ML UDC PO SCH (09:15)
[2020-10-22] MEDS: PANTOPRAZOLE SODIUM 40 MG/VIAL IV SCH (09:15)
[2020-10-22] MEDS: FOLIC ACID 1MG TABLET PO SCH (09:15)
[2020-10-22] MEDS: FLUDROCORTISONE ACETATE 0.1MG TABLET PO SCH (09:15)
[2020-10-22] MEDS: RIFAXIMIN 550 MG TABLET PO SCH ×2 (09:15→21:12)
[2020-10-22] MEDS: THIAMINE HCL 100MG TABLET PO SCH (09:15)
[2020-10-22] MEDS: FUROSEMIDE 40MG/4ML VIAL IVP SCH (09:15)
[2020-10-22] MEDS: LACTULOSE 20G/30ML UDC PO SCH ×3 (09:15→16:56)
[2020-10-22] MEDS: ZINC SULFATE 220 MG ( 50 ) CAPSULE PO SCH (09:16)
[2020-10-22] MEDS: LINEZOLID 600MG TABLET PO SCH ×2 (09:16→21:12)
[2020-10-22] MEDS: ALPRAZOLAM 0.5 MG TABLET PO PRN (10:43)
[2020-10-22] MEDS ORDERED: POTASSIUM CHLORIDE 20MEQ TABLET SR PO NR (11:15)
[2020-10-22 11:30] LABS: BG BASE EXCESS -1.1 mmol/L (-2.0-2.0); BG CARBOXYHEMOGLOBIN 1.1 % (0.5-1.5); BG DEOXYHEMOGLOBIN 3.8 % (0.0-5.0); BG FRACTION INSPIRED OXYGEN 35; BG HCO3 ACT 24.1 mmol/L (22.0-26.0); BG METHEMOGLOBIN 0.3 % (0.0-1.5); BG OXYGEN SATURATION 96.1 % (92.0-98.5); BG OXYHEMOGLOBIN 94.8 % (94.0-97.0); BG PCO2 42.2 mmHg (35.0-45.0); BG PH 7.374 (7.350-7.450); BG PO2 78.4 mmHg (75.0-100.0); BG SAMPLE SITE RIGHT RADIAL; BG TOTAL HEMOGLOBIN 8.1 g/dL (12.0-18.0); BG VENT MODE MASK - BIPAP
[2020-10-22] MEDS: SERTRALINE HCL 50MG TABLET PO SCH (14:00)
[2020-10-22 14:57] LABS: DIGOXIN 1.2 ng/mL (0.9-2.0)
[2020-10-22] MEDS: QUETIAPINE FUMARATE 50MG TABLET PO SCH (21:12)
[2020-10-23] VITALS (76 sets, daily range): BP systolic 88–137; BP diastolic 30–103
[2020-10-23] MEDS: METOCLOPRAMIDE HCL 10MG/2ML VIAL IV SCH ×2 (00:25→05:48)
[2020-10-23] MEDS: IPRATROPIUM BROMIDE (0.02%) 0.5MG/2.5ML NEB HHN SCH ×3 (01:44→12:43)
[2020-10-23] MEDS: NYSTATIN POWDER 15GM TOP SCH (05:48)
[2020-10-23] MEDS: MIDODRINE HCL 5MG TABLET PO SCH (05:49)
[2020-10-23 05:57] LABS: BASOPHILS % 1.1 % (0.0-2.0); EOSINOPHILS % 0.8 % (0.0-5.0); LYMPHOCYTES % 10.7 % (20.0-50.0); MEAN CORPUSCULAR HEMOGLOBIN 34.4 pg (28.0-32.0); MEAN CORPUSCULAR VOLUME 99.6 fL (81.0-99.0); MEAN PLATELET VOLUME 8.4 fl (7.4-10.4); MONOCYTES % 5.6 % (2.0-8.0); NEUTROPHILS % 81.8 % (40.0-76.0); PLATELET 87 x1000/uL (130-400); RED BLOOD CELL COUNT 1.92 mill/uL (4.2-5.4); RED CELL DISTRIBUTION WIDTH 18.3 % (11.6-14.6)
[2020-10-23 06:45] LABS: HEMATOCRIT. 19.2 % (36.0-48.0); HEMOGLOBIN. 6.6 g/dL (12.0-16.0)
[2020-10-23] MEDS: LACTULOSE 20G/30ML UDC PO SCH (10:32)
[2020-10-23] MEDS: FOLIC ACID 1MG TABLET PO SCH (10:32)
[2020-10-23] MEDS: FUROSEMIDE 40MG/4ML VIAL IVP SCH (10:32)
[2020-10-23] MEDS: MEGESTROL ACETATE 400 MG/10 ML UDC PO SCH (10:32)
[2020-10-23] MEDS: THIAMINE HCL 100MG TABLET PO SCH (10:32)
[2020-10-23] MEDS: PANTOPRAZOLE SODIUM 40 MG/VIAL IV SCH (10:32)
[2020-10-23] MEDS: ALPRAZOLAM 0.5 MG TABLET PO PRN ×2 (10:32→18:40)
[2020-10-23] MEDS: SERTRALINE HCL 50MG TABLET PO SCH (10:33)
[2020-10-23] MEDS: ZINC SULFATE 220 MG ( 50 ) CAPSULE PO SCH (10:33)
[2020-10-23] MEDS: FLUDROCORTISONE ACETATE 0.1MG TABLET PO SCH (10:33)
[2020-10-23] MEDS: RIFAXIMIN 550 MG TABLET PO SCH (10:33)
[2020-10-23] MEDS: LINEZOLID 600MG TABLET PO SCH (11:01)
[2020-10-23] MEDS ORDERED: ALBUMIN HUMAN 12.5G/250ML (5%) IV SCH (12:00)
[2020-10-23] MEDS ORDERED: METOLAZONE 2.5MG TABLET PO SCH (13:00)
[2020-10-23 13:25] LABS: D-DIMER 24.81 mg/L FEU (<0.50); INR 1.4; PROTHROMBIN TIME 14.6 sec (9.6-11.0)
[2020-10-23] MEDS: ACETAMINOPHEN 325MG TABLET PO PRN ×2 (15:38→18:24)
[2020-10-23] MEDS ORDERED: LORAZEPAM 2MG/ML CPJ IV PRN (19:00)
[2020-10-23] MEDS: MORPHINE SULFATE 250 MG in DEXT 5% WATER 225 ML IV PRN (20:44)
[2020-10-24] VITALS (35 sets, daily range): BP systolic 64–106; BP diastolic 28–73
[2020-10-24] MEDS: MORPHINE SULFATE 250 MG in DEXT 5% WATER 225 ML IV PRN ×3 (04:33→20:45)
== END 2020-10-24 21:55 | DRG 208 ==
LOC: MICUNO 01:15 → 5EST 10-14 22:50 → MICUSO 10-18 13:02 → 6EST 10-24 14:09
PROVIDERS: ADMIT Internal Medicine Nephrology; ATTEND Internal Medicine Nephrology
PROC: 5A1945Z Respiratory Ventilation, 24-96 Consecutive Hours (ICD-10-PCS; principal; 2020-09-26)
PROC: 0BH17EZ Insertion of Endotracheal Airway into Trachea, Via Natural or Artificial Opening (ICD-10-PCS; 2020-09-26)
PROC: 0DJ08ZZ Inspection of Upper Intestinal Tract, Via Natural or Artificial Opening Endoscopic (ICD-10-PCS; 2020-09-27)
PROC: 5A1D70Z Performance of Urinary Filtration, Intermittent, Less than 6 Hours Per Day (ICD-10-PCS; 2020-09-28)
PROC: 5A09357 Assistance with Respiratory Ventilation, Less than 24 Consecutive Hours, Continuous Positive Airway Pressure (ICD-10-PCS; 2020-09-29)
PROC: 30233N1 Transfusion of Nonautologous Red Blood Cells into Peripheral Vein, Percutaneous Approach (ICD-10-PCS; 2020-10-01)
PROC: 5A09357 Assistance with Respiratory Ventilation, Less than 24 Consecutive Hours, Continuous Positive Airway Pressure (ICD-10-PCS; 2020-10-01)
PROC: 5A09357 Assistance with Respiratory Ventilation, Less than 24 Consecutive Hours, Continuous Positive Airway Pressure (ICD-10-PCS; 2020-10-02)
PROC: 05HY33Z Insertion of Infusion Device into Upper Vein, Percutaneous Approach (ICD-10-PCS; 2020-10-02)
PROC: B54NZZA Ultrasonography of Left Upper Extremity Veins, Guidance (ICD-10-PCS; 2020-10-02)
PROC: 5A09357 Assistance with Respiratory Ventilation, Less than 24 Consecutive Hours, Continuous Positive Airway Pressure (ICD-10-PCS; 2020-10-03)
PROC: 5A09457 Assistance with Respiratory Ventilation, 24-96 Consecutive Hours, Continuous Positive Airway Pressure (ICD-10-PCS; 2020-10-03)
PROC: 5A1D70Z Performance of Urinary Filtration, Intermittent, Less than 6 Hours Per Day (ICD-10-PCS; 2020-10-04)
PROC: 5A09357 Assistance with Respiratory Ventilation, Less than 24 Consecutive Hours, Continuous Positive Airway Pressure (ICD-10-PCS; 2020-10-05)
PROC: 5A09457 Assistance with Respiratory Ventilation, 24-96 Consecutive Hours, Continuous Positive Airway Pressure (ICD-10-PCS; 2020-10-05)
PROC: 5A1D70Z Performance of Urinary Filtration, Intermittent, Less than 6 Hours Per Day (ICD-10-PCS; 2020-10-06)
PROC: 5A1D70Z Performance of Urinary Filtration, Intermittent, Less than 6 Hours Per Day (ICD-10-PCS; 2020-10-07)
PROC: 5A1D70Z Performance of Urinary Filtration, Intermittent, Less than 6 Hours Per Day (ICD-10-PCS; 2020-10-08)
PROC: 5A09357 Assistance with Respiratory Ventilation, Less than 24 Consecutive Hours, Continuous Positive Airway Pressure (ICD-10-PCS; 2020-10-08)
PROC: 5A09457 Assistance with Respiratory Ventilation, 24-96 Consecutive Hours, Continuous Positive Airway Pressure (ICD-10-PCS; 2020-10-08)
PROC: 5A1D70Z Performance of Urinary Filtration, Intermittent, Less than 6 Hours Per Day (ICD-10-PCS; 2020-10-11)
PROC: 5A09357 Assistance with Respiratory Ventilation, Less than 24 Consecutive Hours, Continuous Positive Airway Pressure (ICD-10-PCS; 2020-10-12)
PROC: 0DBL8ZX Excision of Transverse Colon, Via Natural or Artificial Opening Endoscopic, Diagnostic (ICD-10-PCS; 2020-10-13)
PROC: 5A09357 Assistance with Respiratory Ventilation, Less than 24 Consecutive Hours, Continuous Positive Airway Pressure (ICD-10-PCS; 2020-10-14)
PROC: 5A09357 Assistance with Respiratory Ventilation, Less than 24 Consecutive Hours, Continuous Positive Airway Pressure (ICD-10-PCS; 2020-10-15)
PROC: 5A09457 Assistance with Respiratory Ventilation, 24-96 Consecutive Hours, Continuous Positive Airway Pressure (ICD-10-PCS; 2020-10-15)
PROC: 5A09357 Assistance with Respiratory Ventilation, Less than 24 Consecutive Hours, Continuous Positive Airway Pressure (ICD-10-PCS; 2020-10-17)
PROC: 5A09357 Assistance with Respiratory Ventilation, Less than 24 Consecutive Hours, Continuous Positive Airway Pressure (ICD-10-PCS; 2020-10-18)
PROC: 5A09457 Assistance with Respiratory Ventilation, 24-96 Consecutive Hours, Continuous Positive Airway Pressure (ICD-10-PCS; 2020-10-19)
PROC: 5A09357 Assistance with Respiratory Ventilation, Less than 24 Consecutive Hours, Continuous Positive Airway Pressure (ICD-10-PCS; 2020-10-20)
PROC: 5A09457 Assistance with Respiratory Ventilation, 24-96 Consecutive Hours, Continuous Positive Airway Pressure (ICD-10-PCS; 2020-10-21)
DX: J96.01 Acute respiratory failure with hypoxia (principal); G93.41 Metabolic encephalopathy; I50.33 Acute on chronic diastolic (congestive) heart failure; N17.0 Acute kidney failure with tubular necrosis; L89.43 Pressure ulcer of contiguous site of back, buttock and hip, stage 3; E43 Unspecified severe protein-calorie malnutrition; J18.9 Pneumonia, unspecified organism; I13.0 Hypertensive heart and chronic kidney disease with heart failure and stage 1 through stage 4 chronic kidney disease, or unspecified chronic kidney disease; I48.20 Chronic atrial fibrillation, unspecified; K92.2 Gastrointestinal hemorrhage, unspecified; E87.1 Hypo-osmolality and hyponatremia; L03.116 Cellulitis of left lower limb; D68.59 Other primary thrombophilia; F11.20 Opioid dependence, uncomplicated; K55.9 Vascular disorder of intestine, unspecified; K63.3 Ulcer of intestine; K80.10 Calculus of gallbladder with chronic cholecystitis without obstruction; N39.0 Urinary tract infection, site not specified; R18.8 Other ascites; Z16.21 Resistance to vancomycin; L03.115 Cellulitis of right lower limb; Z68.44 Body mass index [BMI] 60.0-69.9, adult; J96.02 Acute respiratory failure with hypercapnia; Z51.5 Encounter for palliative care; Z66 Do not resuscitate; E66.01 Morbid (severe) obesity due to excess calories; I48.0 Paroxysmal atrial fibrillation; E87.6 Hypokalemia; E83.51 Hypocalcemia; N18.9 Chronic kidney disease, unspecified; B95.2 Enterococcus as the cause of diseases classified elsewhere; D63.8 Anemia in other chronic diseases classified elsewhere; I27.20 Pulmonary hypertension, unspecified; K72.90 Hepatic failure, unspecified without coma; M17.10 Unilateral primary osteoarthritis, unspecified knee; D53.9 Nutritional anemia, unspecified; D69.6 Thrombocytopenia, unspecified; E78.5 Hyperlipidemia, unspecified; F10.20 Alcohol dependence, uncomplicated; F17.210 Nicotine dependence, cigarettes, uncomplicated; F41.9 Anxiety disorder, unspecified; G47.00 Insomnia, unspecified; I87.8 Other specified disorders of veins; K64.8 Other hemorrhoids; J44.9 Chronic obstructive pulmonary disease, unspecified; K74.60 Unspecified cirrhosis of liver; K76.0 Fatty (change of) liver, not elsewhere classified; M47.26 Other spondylosis with radiculopathy, lumbar region; M47.812 Spondylosis without myelopathy or radiculopathy, cervical region; M51.16 Intervertebral disc disorders with radiculopathy, lumbar region; I95.9 Hypotension, unspecified; R16.2 Hepatomegaly with splenomegaly, not elsewhere classified; S70.10XA Contusion of unspecified thigh, initial encounter; X58.XXXA Exposure to other specified factors, initial encounter; I73.9 Peripheral vascular disease, unspecified; F17.200 Nicotine dependence, unspecified, uncomplicated; R04.0 Epistaxis; Z20.822 Contact with and (suspected) exposure to COVID-19; Z74.01 Bed confinement status; Z98.84 Bariatric surgery status; Y93.89 Activity, other specified; Y92.89 Other specified places as the place of occurrence of the external cause; Y99.8 Other external cause status; Z88.2 Allergy status to sulfonamides; Z91.041 Radiographic dye allergy status; Z91.013 Allergy to seafood; Z88.1 Allergy status to other antibiotic agents; Z71.6 Tobacco abuse counseling
CPT/HCPCS: 31500; 36415; 36600; 71045; 71250; 74018; 74176; 76700; 76937; 78227; 78278; 80048; 80053; 80076; 80162; 80202; 81003; 82040; 82140; 82247; 82248; 82270; 82375; 82607; 82728; 82746; 82805; 82962; 83540; 83550; 83735; 83880; 84100; 84132; 84134; 84145; 84439; 84443; 84450; 84478; 84481; 84484; 85014; 85018; 85025; 85044; 85362; 85379; 85384; 86705; 86706; 86709; 86803; 86850; 86900; 86920; 87070; 87077; 87106; 87186; 87340; 87426; 88305; 92610; 93005; 93306; 93923; 93970; 94002; 94003; 94640; 94660; 97110; 97162; 97164; 97166; 97168; 97530; 97535; A4216; A6261; A9537; A9560; C1725; C9113; J0282; J0692; J0696; J0885; J1160; J1170; J1644; J1940; J2060; J2270; J2310; J2354; J2370; J2405; J2704; J2765; J3010; J3370; J3475; J3480; J3490; J7040; J7050; J7060; P9016; P9041; P9047; Q0163; A4315